=== PATIENT | female | born 1975 | race Caucasian/White ===

== ENCOUNTER 2019-12-20 18:29 | Emergency (ER) | payer OTHER, SELFPAY ==
[2019-12-20 18:38] VITALS: BP 129/82; PULSE 64; RESP 16; TEMP 36.4; O2SAT 99
--- NOTE | 2019-12-20 18:54 | ED.GENADULT ---
HPI - General Adult General Chief complaint: Upper Respiratory Infection Stated complaint: ears clogged headache dizzy Time Seen by Provider: 12/20/19 18:54 Source: patient and RN notes reviewed Mode of arrival: ambulatory Limitations: no limitations History of Present Illness HPI narrative: 44-year-old female complains of bilateral ear decrease hearing, pressure, clogged feeling, and tinnitus, rhinorrhea and congestion, and intermittent headache (none now, not the worst of her like) for 7 days. Peroxide in ears without relief. Symptoms increased over the last 24 hours with intermittent dizziness and nausea (none at this time). Denies itching or drainage. Recently had URI symptoms. No facial swelling. Rhinorrhea and nasal congestion. No high fevers, sore throat, drooling, neck or throat swelling. No chest pain or shortness of breath. Denies vomiting and abdominal pain. Tolerating liquids well. Remains active. Lilian denies being , LMP today. Some parts of this dictation were generated by voice recognition software and may contain typographical and/or grammatical inaccuracies. Related Data Allergies Allergy/AdvReac Type Severity Reaction Status Date / Time No Known Drug Allergies Allergy Unknown Unknown Verified 12/20/19 18:34 DENIES ANY FOOD ALLERGIES Allergy Unknown Unknown Uncoded 12/20/19 18:34 Review of Systems Review of Systems: Narrative: CONSTITUTIONAL: Denies fever, chills, sweats. EYES: Denies visual changes, redness, discharge. ENT: Complains of rhinorrhea, congestion, bilateral ear pressure, tinnitus, decrease hearing, clogged. Denies sore throat, otalgia. CARDIOVASCULAR: Denies chest pain, palpitations, edema. RESPIRATORY: Denies dyspnea, wheezing, cough. GASTROINTESTINAL: Denies abdominal pain, nausea, vomiting, diarrhea. GENITOURINARY: Denies dysuria, hematuria, abnormal discharge. SKIN: Denies rash or itching. MUSCULOSKELETAL: Denies acute back pain, joint pain, or myalgia. NEUROLOGIC: Denies numbness or focal weakness. Complains of intermittent SOW. PSYCHIATRIC: Denies anxiety or depression. All systems reviewed & are unremarkable except as noted in HPI and below. COUNT INCLUDES THE [facility] Past Medical History Medical History (Updated 12/21/19 @ 00:01 by Sulma Moreno) Ovarian cyst Surgical History Surgical History (Updated 12/20/19 @ 19:04 by KATE Gregg) History of removal of ovarian cyst Family History Family History Other Diabetes mellitus High cholesterol Hypertension Social History Social History Smoking status: Never smoker Gender identity (if verbalized by the patient): Female Comments At time of signature, agree with nurse past medical, surgical, social, and family history. There is no relevant family history pertinent to the presenting complaint. Exam Narrative: Exam Narrative: GENERAL: This is a well-nourished, well-developed patient, in no apparent distress. Talks in full sentences and ambulates with steady gait without dyspnea. HEAD: normocephalic, atraumatic. EYES: PERRL. Sclera clear/white. Vision is grossly intact. EARS: External ears normal, auditory canals clear and without drainage, TMs with mild redness and effusion, without perforation, bulging or drainage. NOSE: External nose normal with no obvious nasal discharge, nares with moderate redness and enlarged turbinates, clear rhinorrhea. THROAT: Mucous membranes moist, posterior pharynx clear. Mild erythema. NECK: Neck supple, non-tender without lymphadenopathy, masses or thyromegaly. CARDIOVASCULAR: Regular rate and rhythm without murmurs, gallops, or rubs. RESPIRATORY: Clear to auscultation. Breath sounds equal bilaterally. No wheezes, rales, or rhonchi. GASTROINTESTINAL: Abdomen soft, non-tender, nondistended. Bowel sounds are active. No hepato-splenomegaly, or palpable masses. No guarding. SKI
== END 2019-12-20 19:19 | disposition home or self-care (01) ==
PROVIDERS: Emergency Provider Nurse Practitioner Family
DX: H93.13 Tinnitus, bilateral (principal); J20.9 Acute bronchitis, unspecified; J00 Acute nasopharyngitis [common cold]
CPT/HCPCS: 99213; G0463

== ENCOUNTER 2020-02-20 10:28 | Emergency (ER) | payer SELFPAY ==
[2020-02-20 10:33] VITALS: BP 126/76; PULSE 67; RESP 20; TEMP 36.9; O2SAT 100
--- NOTE | 2020-02-20 11:05 | ED.FEMALEGU ---
HPI - Female Genitourinary General Chief complaint: Urogenital-Female Stated complaint: UTI Source: patient and RN notes reviewed Mode of arrival: ambulatory Limitations: no limitations History of Present Illness HPI Narrative: The patient, a non-smoker/nondrinker, presents with urinary symptoms. Patient states she has a prior history of bacterial vaginosis and cystitis. She has a 1 to 2-week history of urinary frequency, urgency, dysuria. No fever, hematuria, rash, vaginal discharge; no fever, sore throat, cough, travel history, vomiting/diarrhea. She has a prior history of ovarian cyst removal. Related Data Allergies Allergy/AdvReac Type Severity Reaction Status Date / Time No Known Drug Allergies Allergy Unknown Unknown Verified 12/20/19 18:34 Review of Systems Review of Systems: Narrative: General/Constitutional: No weight loss,fever Eyes: N0: Redness,discharge Ears/Nose/Throat: No: Epistaxis,ear discharge Respiratory: Denies: Hemoptysis Gastrointestinal: No Vomiting, Bleeding-rectal Skin: No Lumps, eruption Neurologic: No Focal Weakness,Sz Hematologic: Denies: Petechiae/Purpura Psychiatric: No: Suicida ideationl [facility] Past Medical History Medical History (Updated 02/20/20 @ 11:55 by Paul Bowers MD) Ovarian cyst Surgical History Surgical History (Updated 12/20/19 @ 19:04 by KATE Gregg) History of removal of ovarian cyst Social History Social History Smoking status: Never smoker Gender identity (if verbalized by the patient): Female Comments At time of signature, agree with nursing past medical, surgical, social and family history. There is no relevant family history pertinent to the presenting complaint Exam Narrative: Exam Narrative: General Appearance: Well appearing, Conjunctiva clear Mouth/Throat: Normal appearing, Normal lips Supple Respiratory: Airway patent, No respiratory distress Musculoskeletal: Full ROM Skin: Warm, Dry Neurological: A&O x3, Normal affect The patient agrees, in light of health emergency- in my medical judgement, only a personal chat was preferable to fully undress & examine the patient exhibiting potential COVID symptoms- in order to limit risk of infection. Course Vital Signs Vital signs: Vital Signs Temperature 98.5 F 02/20/20 10:33 Pulse Rate 67 02/20/20 10:33 Respiratory Rate 20 02/20/20 10:33 Blood Pressure 126/76 02/20/20 10:33 Pulse Oximetry 100 02/20/20 10:33 Temperature 98.5 F 02/20/20 10:33 Pulse Rate 67 02/20/20 10:33 Respiratory Rate 20 02/20/20 10:33 Blood Pressure 126/76 02/20/20 10:33 Pulse Oximetry 100 02/20/20 10:33 MDM - Female Genitourinary Lab Data Labs: Urine Glucose Negative Reference Range: Negative Urine Bilirubin Negative Reference Range: Negative Urine Ketone Negative Reference Range: Negative Urine Specific [place] 1.010 Reference Range:1.001-1.035 Urine Blood Negative Reference Range: Negative * * Urine pH 6.0 Reference Range: 5.0-9.0 Urine Protein Negative Reference Range: Negative Urine Urobilinogen 0.2 Reference Range: 0.2-1.0 Urine Nitrate Negative Reference Range: Negative Urine Leukocyte Negative Reference Range: Negative Urine Color Yellow Reference Range: Yellow Urine Characteristics Clear Discharge Plan Discharge Clinical Impression: Dysuria Patient Disposition: Home, Self-Care Condition: Stable Instructions: Antibiotic Form, Urinary Tract Infection in Women (ED) Additional Instructions: Take diflucan next week [
== END 2020-02-20 11:15 | disposition home or self-care (01) ==
PROVIDERS: Emergency Provider Emergency Medicine
DX: R30.0 Dysuria (principal)
CPT/HCPCS: 81003; 87491; 87591; 99214; G0463

== ENCOUNTER 2022-03-31 19:17 | Emergency (ER) | payer OTHER, BC, SELFPAY ==
[2022-03-31 19:39] VITALS: BP 123/80; PULSE 60; RESP 18; TEMP 36.3; O2SAT 100
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
== END 2022-03-31 20:10 | disposition home or self-care (01) ==
PROVIDERS: Emergency Provider Registered Nurse
DX: R51.9 Headache, unspecified (principal); S16.1XXA Strain of muscle, fascia and tendon at neck level, initial encounter; V54.5XXA Driver of pick-up truck or van injured in collision with heavy transport vehicle or bus in traffic accident, initial encounter; M54.6 Pain in thoracic spine; Z87.891 Personal history of nicotine dependence
CPT/HCPCS: 99213; G0463

== ENCOUNTER 2022-05-29 18:03 | Emergency (ER) | payer BC, SELFPAY ==
[2022-05-29 18:05] VITALS: BP 135/95; PULSE 98; RESP 16; TEMP 36.3; O2SAT 99
--- NOTE | 2022-05-29 18:13 | WPDEDEXPGENP ---
HPI - General Ped General Chief complaint: Urogenital-Female Stated complaint: Possible UTI History of Present Illness HPI narrative: 47 y/o female presents to [facility] via POV for an evaluation of urinary sx that began 3-4 days ago. Additionally, she reports dysuria, left low abdominal pain, and low abdominal pressure. No otc meds for sx. Nothing improves sx. Urinating worsens sx. Hx of UTIs. Today's sx are similar UTIs. She is uncomfortable and rates is 4/10. Related Data Allergies Allergy/AdvReac Type Severity Reaction Status Date / Time No Known Allergies Allergy Verified 05/29/22 18:05 Pediatric Review of Systems Review of Systems: Denies history of pyelonephritis and renal calculi. Pertinent negatives: fever, chills, sweats, change in appetite, poor p.o. intake, malaise, recent weight loss, myalgias, lymphadenopathy, headache, dizziness, STD exposure, painful intercourse, constipation, nausea, vomiting, diarrhea, abdominal cramping, hematuria, urinary frequency/urgency, back pain, urinary incontinence, vaginal bleeding/discharge, shortness of breath, chest pain, and heart palpitations/murmurs. [facility] Past Medical History Medical History Ovarian cyst Surgical History Surgical History History of removal of ovarian cyst Family History Family History Other Diabetes mellitus High cholesterol Hypertension Social History Social History Smoking status: Former smoker Additional smoking assessment comments: quit 2009 Alcohol intake: current Alcohol use details: rare Substance use type: does not use Gender identity (if verbalized by the patient): Female Pediatric Exam Narrative: Physical exam: GENERAL: Well-appearing, well-nourished, and in no acute distress. HEAD: Normocephalic, atraumatic. NECK: Supple. No lymphadenopathy or nuchal rigidity. CHEST: Lung sounds are clear to auscultation in bilateral lung martinez. No respiratory distress. HEART: Regular rate and rhythm. No murmur, gallop, or rub heard. ABDOMEN: Soft, non-distended, normal active bowel sounds in all quadrants. No guarding. No rebound tenderness. No pulsatile or palpable abdominal mass(es). No CVAT. Mild suprapubic tenderness and mild left lower quad pain appreciated upon palpation : Bladder non-distended EXTREMITIES: Normal range of motion. No edema. SKIN: Warm, dry, no rash. No skin color changes. Excellent turgor. NEURO: No focal deficits. Alert and oriented x3. SPECIAL OBSERVATIONS: Smiling. Laughing. No evidence of discomfort. Tolerated fluids. Course Course Emergency Course: The patient/guardian displays adequate decision making capability and despite a detailed discussion of alternatives, benefits, risks, and consequences refuses higher level of care to ER via EMS. Level of Care: Express Care Visit Medical Decision Making Differential Diagnosis Differential Diagnosis: Nephrolithiasis, urinary tract infection, pyelonephritis, frequency of micturition, dysuria Vital Signs Vital Signs: Due to an elevated blood pressure, I had a detailed discussion with the patient and/or guardian regarding the need for follow-up with their primary care provider within the next 3-4 days. Patient verbalized understanding and agreed. Lab Data Lab results narrative: Urine dipstick: Color: yellow; Clarity: cloudy; Glucose: negative; Bilirubin: negative; Ketones: 3+, Specific [place]: 1.030; Blood: tract, intact; pH: 5.5 Protein: negative; URO: 0.2 E.U/dL; Nitrites: negative; Leukocytes: negative Critical Care Time Critical Care Time Critical Care Time: No Discharge Plan Discharge Clinical Impression: Hematuria Abdominal pain Qualifiers: Abdominal location: left lower quadrant Qual
== END 2022-05-29 18:30 | disposition left against medical advice (07) ==
PROVIDERS: Emergency Provider Nurse Practitioner Family
DX: R31.9 Hematuria, unspecified (principal); R10.32 Left lower quadrant pain; Z87.891 Personal history of nicotine dependence
CPT/HCPCS: 81003; 87086; 87088; 99213; G0463

== ENCOUNTER 2022-06-29 13:02 | Outpatient (CLI) | payer BC, SELFPAY ==
--- NOTE | 2022-06-29 | ECG_ITS ---
Measurements Intervals [place] Rate: 67 P: 33 OH: 120 QRS: 62 QRSD: 90 T: 53 QT: 361 QTc: 384 Interpretive Statements SINUS RHYTHM WITH SINUS ARRHYTHMIA NORMAL ECG NO PREVIOUS ECG AVAILABLE FOR COMPARISON Electronically Signed On 06-29-2022 14:16:31 CDT by Paul Clinton M.D.
== END 2022-06-29 13:03 | disposition home or self-care (01) ==
PROVIDERS: Visit Provider Nurse Practitioner
DX: E66.9 Obesity, unspecified (principal)
CPT/HCPCS: 93005

== ENCOUNTER 2023-02-28 16:43 | Emergency (ER) | payer BC, SELFPAY ==
[2023-02-28 16:55] VITALS: BP 113/77; PULSE 71; RESP 16; TEMP 36.2; O2SAT 100
--- NOTE | 2023-02-28 17:19 | ED.EYEPROB ---
HPI - Eye Problem General Chief complaint: Eye Problems Stated complaint: lt eye irritation Source: patient Mode of arrival: ambulatory Limitations: no limitations History of Present Illness HPI Narrative: 48 year old female presents to [facility] with complaints of redness, swelling and pain to left eyelid for the past 2 days. Patient reports that she started using coconut oil and castor oil on her eyelashes for the past 2 weeks inserted with irritation few days ago. Patient denies eye drainage, eye redness or visual changes. Patient does wear contacts MD chief complaint: other (left eye lid pain, redness and swelling) Onset (ago): day(s) (2) Location: left eye Associated symptoms: none Treatments Prior to Arrival: none Related Data Home Medications Medication Instructions Recorded Confirmed tirzepatide 2.5 mg/0.5 mL 2.5 mg subcut DIRECTED 02/28/23 02/28/23 subcutaneous pen injector (Florian) Allergies Allergy/AdvReac Type Severity Reaction Status Date / Time No Known Allergies Allergy Verified 05/29/22 18:05 Review of Systems Constitutional: Constitutional: Denies chills, Denies fatigue, Denies fever(s) and Denies weakness Eyes: Comments: Redness, pain and swelling to left eyelid ENT: Denies vertigo, Denies dizziness, Denies epistaxis and Denies nasal congestion Respiratory: Respiratory: Denies cough, Denies dyspnea and Denies wheezing Gastrointestinal: Gastrointestinal: Denies diarrhea, Denies nausea and Denies vomiting Integumentary/Breasts: Skin/Breast: Denies pruritus, Reports erythema, Denies rash and Denies skin ulcer Neurologic: Denies vertigo, Denies dizziness, Denies syncope and Denies headache(s) [facility] Past Medical History Medical History Ovarian cyst Surgical History Surgical History History of removal of ovarian cyst Family History Family History Other Diabetes mellitus High cholesterol Hypertension Social History Social History Smoking status: Former smoker Additional smoking assessment comments: quit 2009 Alcohol intake: current Alcohol use details: rare Substance use type: does not use Living arrangements: with family Gender identity (if verbalized by the patient): Female Comments At time of signature, I agree with nursing past medical, surgical, social and family history. There is no relevant family history pertinent to the presenting complaint. Exam Const: General: healthy appearing and no acute distress Nutritional Appearance: well nourished Orientation/consciousness: patient oriented x3 Limitations: no limitations Eyes: Pupils: Equal, round and reactive pupils present EOM: EOMs intact bilaterally Direct Ophthalmoscopy: no photophobia Other: Erythema, swelling and pain noted to left upper eyelid; there is no erythema to the conjunctiva/sclera. No obvious stye noted Neck: Neck: normal visual inspection Resp: Effort & Inspection: normal respiratory effort and not labored Auscultation: clear to auscultation bilaterally, no crackles, no rales, no rhonchi and no wheezes Cardio: Rate: regular rate Rhythm: regular rhythm Skin: General skin exam: normal color Wounds: no wounds Neuro: General: patient oriented x3 Speech: normal speech Gait exam (Neuro): Normal gait present Psych: Affect: normal affect Attitude: cooperative Course Course Level of Care: Express Care Visit Vital Signs Vital signs: Vital Signs Temperature 36.2 C L 02/28/23 16:55 Pulse Rate 71 02/28/23 16:55 Respiratory Rate 16 02/28/23 16:55 Blood Pressure 113/77 02/28/23 16:55 Pulse Oximetry 100 02/28/23 16:55 Oxygen Delivery Room Air 02/28/23 16:55 Temperature 36.2 C L 02/28/23 16:55 Pulse Rate 71 02/28/23 16:5
== END 2023-02-28 17:37 | disposition home or self-care (01) ==
PROVIDERS: Emergency Provider Nurse Practitioner Family; PCP Nurse Practitioner Family
DX: L24.1 Irritant contact dermatitis due to oils and greases (principal); Z87.891 Personal history of nicotine dependence
CPT/HCPCS: 99213; G0463

== ENCOUNTER 2024-06-19 19:13 | Emergency (ER) | payer OTHER, SELFPAY ==
--- NOTE | 2024-06-19 19:29 | ED.EYEPROB ---
HPI - Eye Problem General Chief complaint: Eye Problems Stated complaint: LT EYE Swellen Time Seen by Provider: 06/19/24 19:34 Source: patient Mode of arrival: ambulatory Limitations: no limitations History of Present Illness HPI Narrative: 49 y/o female presented for complaint of left lower eyelid swelling and pain today. Endorses the lid is tender when touched, and reports mild itching to the lower lid. She is currently taking ofloxacin for diagnosis conjunctivitis 2 days ago. Denies eye drainage, vision changes, photophobia, foreign body sensation or injury. MD chief complaint: eye pain Related Data Home Medications Medication Instructions Recorded Confirmed tirzepatide 2.5 mg/0.5 mL 2.5 mg subcut DIRECTED 02/28/23 06/19/24 subcutaneous pen injector (Rickunchristianro) ofloxacin 0.3 % eye drops 1 drp DIRECTED 06/19/24 06/19/24 Allergies Allergy/AdvReac Type Severity Reaction Status Date / Time No Known Allergies Allergy Verified 05/29/22 18:05 Review of Systems Review of Systems: CONSTITUTIONAL: Denies body aches, fever, chills EYES: Endorses swelling, redness and pain to left lower eye; Denies visual changes, FB sensation, photophobia ENT: Denies rhinorrhea, congestion, sore throat, or otalgia. CARDIOVASCULAR: Denies chest pain, palpitations RESPIRATORY: Denies cough or dyspnea. SKIN: Denies rash, itching, or wounds. MUSCULOSKELETAL: Denies back pain, joint pain, or myalgia. NEUROLOGIC: Denies headache, numbness, tingling, or weakness. All systems reviewed & are unremarkable except as noted in HPI and below PMFSH Past Medical History Medical History Ovarian cyst Surgical History Surgical History History of removal of ovarian cyst Family History Family History Other Diabetes mellitus High cholesterol Hypertension Social History Social History Smoking status: Former smoker Additional smoking assessment comments: quit 2009 Alcohol intake: current Alcohol use details: rare Substance use type: does not use Living arrangements: with family Gender identity (if verbalized by the patient): Female Comments At time of signature, I have reviewed and agree with nursing past medical, surgical, social and family history unless otherwise noted. Please see nursing chart for further information. There is no relevant family history pertinent to the presenting complaint Exam Narrative: GENERAL: Well-appearing EYES: mild left conjunctival injection, Lower eye lid tenderness with palpation, swelling and redness c/w stye, PERRLA, EOMI. Lid eversion shows no foreign body. No active drainage. No erythema or swelling to upper lid. ENT: Mucous membranes pink and moist. No rhinorrhea. CHEST: Clear to auscultation. HEART: Regular rate and rhythm. SKIN: Warm, dry, no rash. Normal skin turgor. NEURO: No focal deficits. Alert and oriented x3 PSYCH: Normal affect. Course Course Emergency Course: Patient is aware of diagnosis, understands and agrees to treatment plan. Anticipatory guidance given. Patient agrees to follow-up as directed and is aware of reasons to seek care at the emergency department. Portions of this record may have been created with voice recognition software Level of Care: Express Care Visit MDM - Eye Problem MDM Narrative Medical decision making narrative: Discussed physical exam findings. Will continue drops as previously prescribed for dx conjunctivitis, will send cephalexin at this time Advised supportive measures and signs/symptoms to go to the ER. Pt is appropriate for outpt treatment and f/u. Differential Diagnosis Differential diagnosis: Likely corneal abrasion, conjunctivitis, acute iritis, periorbital cellulitis, corneal
[2024-06-19 19:33] VITALS: BP 116/71; PULSE 65; RESP 16; TEMP 36.3; O2SAT 100
[2024-06-19 19:35] VITALS: BP 116/71; PULSE 65; RESP 16; TEMP 36.3; O2SAT 100
== END 2024-06-19 19:45 | disposition home or self-care (01) ==
PROVIDERS: Emergency Provider Nurse Practitioner Family
DX: H00.025 Hordeolum internum left lower eyelid (principal); Z87.891 Personal history of nicotine dependence
CPT/HCPCS: 99213; G0463

== ENCOUNTER 2024-12-28 15:58 | Emergency (ER) | payer OTHER, SELFPAY ==
--- OUTSIDE RECORDS SUMMARY | 2024-12-28 16:00 | XMS_ITS | Clinical Summary ---
Author Organization [facility] Virtual Care Address [address] [place] [phone] Phone Care Team Providers Care Rounder And Backer Name Role Phone Bekah Curry GM VIDEO Primary Care Provider + Allergies No known active allergies Medications Mounjaro 5 mg/0.5 mL pen injector 03/31/2023 Act denise Active Problems Problem Noted Date Diagnosed Date Eye discharge 06/17/2024 Assessment & Plan (06/17/2024 6:43 PM CDT): Possible contact lens overuse? Stop using contacts, removed already Optho referral placed Ofloxacin drops Zyrtec Cool compress ER for worsening symptoms, vision disturbances, pain Surgical History Surgery Date Site/Laterality Comments OVARIAN CYST REMOVAL 11/14/1999 - 11/13/2000 Ruptured cyst Medical History Medical History Date Comments Uses contact lenses Family History Medical History Relation Name Comments Glaucoma Father Macular degeneration Neg Hx Thyroid disease Neg Hx Relation Name Status Comments Father Social History Tobacco Use Types Packs/Day Years Used Date Smoking Tobacco: Never Smokeless Tobacco: Never Personal Safety Answer Date Recorded Getting School Help Needed Not on file 12/11 Comments Unknown Sex and Gender Information Value Date Recorded Sex Assigned at Not on file 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 Gender Identity Not on file Sexual Orientation Not on file Obstetrics History Last Filed Vital Signs Vital Sign Reading Time Taken Comments Blood Pressure 118/82 06/03/2024 11:23 AM CDT Pulse 76 06/17/2024 2:59 PM CDT Temperature 36.4 C (97.6 F) 06/17/2024 2:59 PM CDT Respiratory Rate - - Oxygen Saturation 98% 06/17/2024 2:59 PM CDT Inhaled Oxygen Concentration - - Weight 64 kg (141 lb) 06/17/2024 2:59 PM CDT Height 162.6 cm (5' 4 ) 06/17/2024 2:59 PM CDT Body Mass Index 24.2 06/17/2024 2:59 PM CDT Plan of Treatment Health Maintenance Due Date Last Done Comments Breast Cancer Screening-Mammogram 1974 Cervical Cancer Screening 1974 Colon Cancer Screening-Colonoscopy 1974 Depression Screening 1974 Hepatitis C Screening 1974 Regular Well Visit/Exam 18-64 02/03/1992 DTaP/Tdap/Td Vaccine (3 - Td or Tdap) 01/09/2024 01/09/2014, 07/13/1988, 1974 Zoster Vaccine (1 of 2) 02/03/2024 Covid-19 Vaccine (3 - 2023-2 5 season) 2024 07/27/2021, 06/23/2021 Influenza Vaccine (#1) 2024 , 10/26/2019, 01/09/2014 Pneumococcal vaccine <65 Aged Out No longer eligible based on patient's age to complete this topic Insurance [facility] [place]PO [place] [employer] Address: [facility] [id number] [phone] Care Teams Rounder And Backer Relationship Specialty Start Date End Date Bekah Curry NP [address] [place] [address] PCP - General Nurse Practitioner 04/05/23
--- OUTSIDE RECORDS SUMMARY | 2024-12-28 16:00 | XMS_ITS | Referral Summary ---
Author Organization [facility] Virtual Care Address [address] [place] [phone] Phone Care Team Providers Care Operations Superintendent Name Role Phone Bekah Curry [facility] PERSONNEL DIRECTOR Primary Care Provider + Allergies No known active allergies Medications Mounjaro 5 mg/0.5 mL pen injector 03/31/2023 Act denise Active Problems Problem Noted Date Diagnosed Date Eye discharge 06/17/2024 Assessment & Plan (06/17/2024 6:43 PM CDT): Possible contact lens overuse? 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
--- OUTSIDE RECORDS SUMMARY | 2024-12-28 16:01 | XMS_ITS | Encounter Summary ---
Author Organization [facility] Healthcare Address [address] [place] [address] Care Team Providers Care Patient Day Coordinator Name Role Phone Bekah Curry HAZARDOUS WASTE TECHNICIAN Primary Care Provider + Encounter Details Date Type Department Care Team (Late st Contact Info) Description 07/31/2021 Telephone [facility] [address] (Third Floor) [place] [address] Lucia Jade RN Social History Tobacco Use Types Packs/Day Years Used Date Smoking Tobacco: Never Assessed Comments Unknown Sex and Gender Information Value Date Recorded Sex Assigned at Not on file 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 11/29/2021 12/03/2021 03/29/2022 3:05 AM C DT COVID19 12/03/2021 12/03/2021 12/13/2021 3:05 AM ELECTRICAL SYSTEM SPECIALIST documented as of this encounter Care Teams Patient Day Coordinator Relationship Specialty Start Date End Date Bekah Curry, ADRIANA [address] [facility] DE[facility] FAM[facility] MED[facility]INE [place], [place] [id number] PCP - General Nurse Practitioner 04/05/23 documented as of this encounter
--- OUTSIDE RECORDS SUMMARY | 2024-12-28 16:01 | XMS_ITS | Data Portability ---
Author Organization [facility] Address [address] [place] [address] Assessment Encounter Date Assessment Date Assessment LastModified by Organization Details LastModified Time 01/26/2024 01/26/2024 Annual gynecological exam performed. Patient will come back in a year unless there are new symptoms. [email or web address] Not available 01/26/2024 09:53:52 Plan of Treatment Reminders Order Date Submit Date Provider Last Modified By Organization Details Last Modified Time Details Appointments VAGINAL INFECTION 2024 09:15A M ANASTACIO MONTGOMERY NP Not available Not available Not available Lab CMP, serum or plasma 2023 024 [facility] (Lab), [address], [place], [address], 02/04/2024 03:32:47 HbA1c (hemoglob in A1c), blood 2023 024 [facility] (Lab), [address] [place], [address], 02/04/2024 03:32:48 CBC w/ auto diff 2023 024 [facility] (Lab), [address] [place], [address], 02/04/2024 03:32:46 lipid panel, blood 2023 024 [facility] (Lab), [address] [place], [address], 02/04/2024 03:32:47 TSH, serum or plasma 2023 024 [facility] (Lab), [address], [place], [address], 02/04/2024 03:32:48 vitamin D, 25-hydrox y, total, serum 2023 024 [facility] (Lab), [address], [place], [address], 02/04/2024 03:32:48 Referral None recorded. Procedures None recorded. Surgeries None recorded. Imaging None recorded. Medication Orders Mounjaro 5 mg/0.5 mL subcutane ous pen injector 2023 024 [facility] [address], [address], [place], [address], 01/26/2024 10:22:06 Mounjaro 5 mg/0.5 mL subcutane ous pen injector [address], [address], [place], [address], 01/26/2024 09:56:42 Mounjaro 5 mg/0.5 mL subcutane ous pen injector 2022 023 [place] [address] [facility] #[id number], [address] [place], [place], [id number], 01/26/2024 09:56:42 Mounjaro 7.5 mg/0.5 mL subcutane ous pen injector 2022 023 [id number], [address] [place], [place], [id number], 02/14/2024 13:44:17 Patient TargetsNo targets recorded. Patient InstructionsNo instructions recorded. Reason for Referral None Reported. Results Created Date Observation Date Name Description Value Unit Range Abnormal Flag Note LastModifiedBy Organization Detail LastModifiedTime 02/11/20 23 02/10/2023 CT/GC AND TRICH OMONA S VAGIN ARSH (RRNA ), SWAB chlamydia trachomatis, PCR Negati ve negati ve Not Available [facility] (Lab) [address], [place], [address], 02/11/2023 19:16:54 02/11/20 23 02/10/2023 CT/GC AND TRICH OMONA S VAGIN ARSH (RRNA ), SWAB neisseria gonorrhoeae, PCR Negati ve negati ve Not Available [facility] (Lab) [address], [place], [address], 02/11/2023 19:16:54 02/11/20 23 02/10/2023 CT/GC AND TRICH OMONA S VAGIN ARSH (RRNA ), SWAB trichomonas vaginalis ribosomal RNA (rrna) Negati ve negati ve Not Available [facility] (Lab) [address], [place], [address], 02/11/2023 19:16:54 02/11/20 23 02/10/2023 VAGIN ITIS/ VAGIN OSIS, DNA PROBE ryan sp. detection, direct probe Negati ve negati ve Not Available [facility] (Lab) [address], [place], [address], 02/11/2023 19:16:54 02/11/20 23 02/10/2023 VAGIN ITIS/ VAGIN OSIS, DNA PROBE gardnerella vag. detection, direct probe Positi ve negati ve abnormal Not Available [facility] (Lab) [address], [place], [address], 02/11/2023 19:16:54 02/11/20 23 02/10/2023 VAGIN ITIS/ VAGIN OSIS, DNA PROBE trichomonas vag. detection, direct probe Negati ve negati ve Not Available [facility] (Lab) [address], [place], [address], 02/11/2023 19:16:54 01/26/20 24 01/26/2024 IMAGE GUIDE D PAP AND HPV REGAR DLESS image guided Pap, HPV regardless of Pap result SEE RESULT S BELOW CASE REPOR T: Cytol ogy Gynec ologi gia Repor t Case: [id number] Autho ange javier Provi ramila: Daphne Witt, ADRIANA Ramos cted: 01/25 0938 Order ing Locat ion: [place] [facility] Recei jay jay: 01/26 0554 First Scree n: Maria Ines Gavin Speci men: Clyde patel Pap - Image d, Cervi x STATE MENT OF ADEQU ACY: Satis facto ry for evalu ation Trans forma tion zone compo nent prese nt FINAL DIAGN OSIS: Negat denise for Intra epith elial Nayely sanderson or Lori pina (NIL) . Elect carlee ochoa philippe d by Maria Ines Gavin on 2023 at 2:57 PM ----- ----- ----- ----- ----- ----- ----- ----- ----- ----- ----- ----- ----- ----- ----- ----- ----- ---- HPV RESUL TS: HPV mRNA E6/E7 : No HPV mRNA Detec vincenzo NOTE: This high risk HPV mRNA assay detec ts fourt een high- risk HPV types (16, 18, 31, 33, 35, 39, 45, 51, 52, 56, 58, 59, 66, 68) witho ut diffe renti ation . COMME NT: This speci men was revie wed by a Cytot echno logis t and/o r Patho logis t (as indic ated in this repor t) after evalu ation using the Thinp rep Imagi ng Syste m. CLINI GIA INFOR MATIO N: Menst rual Statu s: LMP (if appli cable ): Clini gia Histo ry/Pr eviou s Pap: Type of Neopl una (if appli cable ): Signi fican t Clini gia Findi ngs: Other Histo ry: Hormo farhana (if appli cable ): PAP EDUCA FARTUN L NOTE: The Pap Test is a scree amanda test with an inher ent false negat denise rate. Liqui d-bas ed sampl ing may decre ase, but will not elimi tushar, false negat denise resul ts. A negat denise resul t does not precl ude the prese nce and/o r devel opmen t of disea se, since the prese nce of abnor mal cells in the sampl e depen ds on the locat ion of the lesio n and sampl ing techn ique. Isiah nued regul ar scree amanda is the best metho d of cance r preve ntion . If repor vincenzo cytol ogic findi ng do not corre late with physi gia and/o r histo rical findi ngs, furth er inves tigat ion is recom faye d, as clini ronnie warra nted. Not Available [facility] (Lab) [address], [place], [address], 01/31/2024 16:00:46 02/03/20 24 02/03/2024 CBC W/DIF F WBC 4.7 10'3/ uL 3.5-10 .5 Not Available [facility] (Lab) [address], [place], [address], 02/04/2024 03:32:46 02/03/20 24 02/03/2024 CBC W/DIF F RBC 4.03 10'6/ uL (based on docume nted legal sex) 3.80-5 .20 Not Available [facility] (Lab) [address], [place], [address], 02/04/2024 03:32:46 02/03/20 24 02/03/2024 CBC W/DIF F HGB 12.8 g/dL (based on docume nted legal sex) 11.6-1 5.4 Not Available [facility] (Lab) [address], [place], [address], 02/04/2024 03:32:46 02/03/20 24 02/03/2024 CBC W/DIF F HCT 38.3 % (based on docume nted legal sex) 34.0-4 5.0 Not Available [facility] (Lab) [address], [place], [address], 02/04/2024 03:32:46 02/03/20 24 02/03/2024 CBC W/DIF F MCV 95.0 fL 80.0-9 9.0 Not Available [facility] (Lab) [address], [place], [address], 02/04/2024 03:32:46 02/03/20 24 02/03/2024 CBC W/DIF F MCH 31.8 pg 27.0-3 4.0 Not Available [facility] (Lab) [address], [place], [address], 02/04/2024 03:32:46 02/03/20 24 02/03/2024 CBC W/DIF F MCHC 33.4 g/dL 32.0-3 5.5 Not Available [facility] (Lab) [address], [place], [address], 02/04/2024 03:32:46 02/03/20 24 02/03/2024 CBC W/DIF F RDW 12.7 % 11.0-1 5.0 Not Available [facility] (Lab) [address], [place], [address], 02/04/2024 03:32:46 02/03/20 24 02/03/2024 CBC W/DIF F plt 410 10'3/ uL 150-40 0 high Not Available [facility] (Lab) [address], [place], [address], 02/04/2024 03:32:46 02/03/20 24 02/03/2024 CBC W/DIF F MPV 10.1 fL 8.8-12 .1 Not Available [facility] (Lab) [address], [place], [address], 02/04/2024 03:32:46 02/03/20 24 02/03/2024 CBC W/DIF F NRBC's 0.0 % 0.0 Not Available [facility] (Lab) [address], [place], [address], 02/04/2024 03:32:46 02/03/20 24 02/03/2024 CBC W/DIF F absolute NRBCs 0.0 10'3/ uL 0.0 Not Available [facility] (Lab) [address], [place], [address], 02/04/2024 03:32:46 02/03/20 24 02/03/2024 CBC W/DIF F neutrophils 64.9 % 34.0-7 3.0 Not Available [facility] (Lab) [address], [place], [address], 02/04/2024 03:32:46 02/03/20 24 02/03/2024 CBC W/DIF F lymphocytes 27.5 % 15.0-5 0.0 Not Available [facility] (Lab) [address], [place], [address], 02/04/2024 03:32:46 02/03/20 24 02/03/2024 CBC W/DIF F monocytes 5.9 % 1.0-15 .0 Not Available [facility] (Lab) [address], [place], [address], 02/04/2024 03:32:46 02/03/20 24 02/03/2024 CBC W/DIF F eosinophils 1.1 % 0.0-8. 0 Not Available [facility] (Lab) [address], [place], [address], 02/04/2024 03:32:46 02/03/20 24 02/03/2024 CBC W/DIF F basophils 0.4 % 0.0-2. 0 Not Available [facility] (Lab) [address], [place], [address], 02/04/2024 03:32:46 02/03/20 24 02/03/2024 CBC W/DIF F immature granulocytes 0.2 % no define d refere nce range Not Available [facility] (Lab) [address], [place], [address], 02/04/2024 03:32:46 02/03/20 24 02/03/2024 CBC W/DIF F absolute neutrophils 3.1 10'3/ uL 1.5-8. 0 Not Available [facility] (Lab) [address], [place], [address], 02/04/2024 03:32:46 02/03/20 24 02/03/2024 CBC W/DIF F absolute lymphocytes 1.3 10'3/ uL 1.0-4. 0 Not Available [facility] (Lab) [address], [place], [address], 02/04/2024 03:32:46 02/03/20 24 02/03/2024 CBC W/DIF F absolute monocytes 0.3 10'3/ uL 0.2-1. 0 Not Available [facility] (Lab) [address] [place], [address], 02/04/2024 03:32:46 02/03/20 24 02/03/2024 CBC W/DIF F absolute eosinophils 0.1 10'3/ uL 0.0-0. 6 Not Available [facility] (Lab) [address] [place], [address], 02/04/2024 03:32:46 02/03/20 24 02/03/2024 CBC W/DIF F absolute basophils 0.0 10'3/ uL 0.0-0. 3 Not Available [facility] (Lab) [address] [place], [address], 02/04/2024 03:32:46 02/03/20 24 02/03/2024 CBC W/DIF F absolute immature granulocytes 0.0 10'3/ uL 0.00-0 .10 2023 1:42 AM: P indic ates parti al resul ts on a panel have been relea sed. Addit ional resul ts will follo w. 2023 1:43 AM: This resul t has been final verif ied. No addit ional or francisco ed resul ts are expec vincenzo. Not Available [facility] (Lab) [address], [place], [address], 02/04/2024 03:32:46 02/03/20 24 02/03/2024 LIPID PANEL ,AMA (LDL- CALC) total cholesterol 220 mg/dL 0-199 high Not Available [facility] (Lab) [address], [place], [address], 02/04/2024 03:32:47 02/03/20 24 02/03/2024 LIPID PANEL ,AMA (LDL- CALC) triglyceride s 145 mg/dL 0.00-1 50.00 NCEP Refer ence Value s for Trigl yceri jeffrey: Angela l: <150 mg/dL Borde rline High: 150 - 199 mg/dL High: 200 - 499 mg/dL Very High: >/= 500 mg/dL Not Available [facility] (Lab) [address], [place], [address], 02/04/2024 03:32:47 02/03/20 24 02/03/2024 LIPID PANEL ,AMA (LDL- CALC) HDL cholesterol 67 mg/dL >40 Not Available [facility] (Lab) [address], [place], [address], 02/04/2024 03:32:47 02/03/20 24 02/03/2024 LIPID PANEL ,AMA (LDL- CALC) LDL cholesterol 127 mg/dL 0-99 high Cutof f value s recom faye d by the Natio nal Reena stero l Educa tion Progr am: JORGE ABLE: Reena stero l <200 mg/dL LDL <100 mg/dL BORDE RLINE : Erena stero l 200-2 39 mg/dL LDL 101-1 59 mg/dL HIGHE R RISK: Reena stero l >240 mg/dL LDL >160 mg/dL , HDL <40 mg/dL Not Available [facility] (Lab) [address], [place], [address], 02/04/2024 03:32:47 02/03/20 24 02/03/2024 LIPID PANEL ,AMA (LDL- CALC) non-HDL cholesterol 153 mg/dL no refere nce range A reaso nable goal for non-H DL reena stero l is one that is 30 mg/dL highe r than the LDL reena stero l goal. Not Available [facility] (Lab) [address], [place], [address], 02/04/2024 03:32:47 02/03/20 24 02/03/2024 LIPID PANEL ,AMA (LDL- CALC) chol/HDL ratio 3.3 . 0.0-5. 0 On March 08, 2023, [facility] [[email or web address]] labor atori chanda francisco ed the equat ion for calcu latin g estim ated low-d ensit y lipop rotei n-cho leste rol (LDL- C) from the Maame marv equat ion to the Abby sanderson/Jemima rebolledo equat ion. This new equat ion is only valid for lipid panel s with trigl yceri jeffrey < 400 mg/dL . Studi es haley demon strat ed that this new equat ion will impro ve the accur acy of LDL-C , espec ially in scena altamirano when LDL-C jae ntrat ions are relat ively low (< 100 mg/dL ), trigl yceri jeffrey are eleva vincenzo, or patie nt is non-f astin g. Refer ences : - Gilles Johnson, Lewis Brown , Lazaro yarbrough, Naresh Abraham, Naresh villarreal, Reynaldo Mccain [facility] , and Bridger Lara . 2013. Comp ariso n of a Novel Metho d vs the Fried marv Equat ion for Estim ating Low-D ensit y Lipop rotei n Reena stero l Level s from the Stand catherine Lipid Profgraham mandel. IRINA: The Journ al of the Ameri can Medic al Assoc iatio n 310 (19): 2060- . - Patrick wharton V, Barbara J, Deandre wharton A, Chiara M, Tomasa buckner R, Robinson wharton E, Adán morris RS, Marco SR, Abby sanderson SS. Fast ing Versu s Nonfa sting and Low-D ensit y Lipop rotei n Reena stero l Accur acy. Circu latio n. 2017Nov 15;137 (1):1 0-19. Not Available [facility] (Lab) [address], [place], [address], 02/04/2024 03:32:47 02/03/20 24 02/03/2024 CMP(C OMPRE HENSI VE METAB OLIC PANEL ) sodium 138 mmol/ L 133-14 6 Not Available [facility] (Lab) [address] [place], [address], 02/04/2024 03:32:47 02/03/20 24 02/03/2024 CMP(C OMPRE HENSI VE METAB OLIC PANEL ) potassium 4.3 mmol/ L 3.5-5. 1 Not Available [facility] (Lab) [address] [place], [address], 02/04/2024 03:32:47 02/03/20 24 02/03/2024 CMP(C OMPRE HENSI VE METAB OLIC PANEL ) chloride 102 mmol/ L 98-107 Not Available [facility] (Lab) [address] [place], [address], 02/04/2024 03:32:47 02/03/20 24 02/03/2024 CMP(C OMPRE HENSI VE METAB OLIC PANEL ) carbon dioxide 29 mmol/ L 21-31 Not Available [facility] (Lab) [address], [place], [address], 02/04/2024 03:32:47 02/03/20 24 02/03/2024 CMP(C OMPRE HENSI VE METAB OLIC PANEL ) anion gap 7 mmol/ L 4-13 Not Available [facility] (Lab) [address], [place], [address], 02/04/2024 03:32:47 02/03/20 24 02/03/2024 CMP(C OMPRE HENSI VE METAB OLIC PANEL ) blood urea nitrogen 12 mg/dL 7-25 Not Available [facility] (Lab) [address], [place], [address], 02/04/2024 03:32:47 02/03/20 24 02/03/2024 CMP(C OMPRE HENSI VE METAB OLIC PANEL ) creatinine 0.83 mg/dL 0.60-1 .30 Not Available [facility] (Lab) [address], [place], [address], 02/04/2024 03:32:47 02/03/20 24 02/03/2024 CMP(C OMPRE HENSI VE METAB OLIC PANEL ) egfrcr (CKD-epi 2020) 86 mL/mi n/1.7 3_m2 >=60 Not Available [facility] (Lab) [address], [place], [address], 02/04/2024 03:32:47 02/03/20 24 02/03/2024 CMP(C OMPRE HENSI VE METAB OLIC PANEL ) calcium 9.3 mg/dL 8.3-10 .5 Not Available [facility] (Lab) [address], [place], [address], 02/04/2024 03:32:47 02/03/20 24 02/03/2024 CMP(C OMPRE HENSI VE METAB OLIC PANEL ) glucose 81 mg/dL 70-100 Not Available [facility] (Lab) [address], [place], [address], 02/04/2024 03:32:47 02/03/20 24 02/03/2024 CMP(C OMPRE HENSI VE METAB OLIC PANEL ) protein, total 7.0 g/dL 6.4-8. 3 Not Available [facility] (Lab) [address], [place], [address], 02/04/2024 03:32:47 02/03/20 24 02/03/2024 CMP(C OMPRE HENSI VE METAB OLIC PANEL ) albumin 4.7 g/dL 3.5-5. 0 Not Available [facility] (Lab) [address], [place], [address], 02/04/2024 03:32:47 02/03/20 24 02/03/2024 CMP(C OMPRE HENSI VE METAB OLIC PANEL ) ALT 20 units /L 9-43 Not Available [facility] (Lab) [address], [place], [address], 02/04/2024 03:32:47 02/03/20 24 02/03/2024 CMP(C OMPRE HENSI VE METAB OLIC PANEL ) alkaline phosphatase 86 units /L 34-104 Not Available [facility] (Lab) [address], [place], [address], 02/04/2024 03:32:47 02/03/20 24 02/03/2024 CMP(C OMPRE HENSI VE METAB OLIC PANEL ) AST 14 units /L 13-39 Not Available [facility] (Lab) [address], [place], [address], 02/04/2024 03:32:47 02/03/20 24 02/03/2024 CMP(C OMPRE HENSI VE METAB OLIC PANEL ) bilirubin, total 0.4 mg/dL 0.2-1. 2 Not Available [facility] (Lab) [address], [place], [address], 02/04/2024 03:32:47 02/03/20 24 02/03/2024 TSH, REFLE X FREE T4 TSH 1.09 uIU/m L 0.30-5 .33 Not Available [facility] (Lab) [address], [place], [address], 02/04/2024 03:32:48 02/03/20 24 02/03/2024 HEMOG LOBIN A1C hemoglobin A1C 5.5 % 0-5.6 The Ameri can Diabe cierra Assoc iatio n recom mends that a prima ry goal of thera py shoul d be a HBA1C of < 7% and that physi cians shoul d reeva luate the treat ment regim en in patie nts with HBA1C value s consi stent ly > 8%. <5.7% Angela l 5.7 - 6.4% Incre ased risk for diabe cierra >=6.5 % Diagn ostic of diabe cierra <7.0% Goal of thera py >8.0% Actio n sugge sted Not Available [facility] (Lab) [address], [place], [address], 02/04/2024 03:32:48 02/03/20 24 02/03/2024 VITAM IN D, 25-OH (TOTA L D2/D3 ) vitamin D, 25-hydroxy, total 16.9 NG/mL 30.0-1 00.0 low Sugge stive of Defic iency : <20 ng/mL Sugge stive of Insuf ficie ncy: 20-29 ng/mL Sugge stive of Suffi cienc y: 30-10 0 ng/mL Sugge stive of Toxic ity: >150 ng/mL Not Available [facility] (Lab) [address], [place], [address], 02/04/2024 03:32:48 Result Notes None recorded. Procedures Surgical History Date Name Laterality Status Provider Name and Address Organization Details Recorded Time 06/07/20 Date of Last Pap Smear completed Rena Soto [facility] 01/26/2024 09:34:45 Laparoscopy completed Tiny West [facility] 06/07/2022 17:02:24 Imaging Results None recorded. Procedure Notes None recorded. Medical Equipment None Reported. Allergies No known drug allergies Medications Name Sig Start Date Stop Date Status Note LastModified by Organization Details LastModified Time binaxnow cov kit home cierra 06/07 completed Not Available Not Available Not Available cyclobenzap rine 10 mg tablet TAKE 1 TABLET BY MOUTH AT BEDTIME NEEDED FOR MUSCLE SPASM. DO NOT DRIVE WHILE TAKING 06/07 completed Not Available Not Available Not Available fluconazole 150 mg tablet TAKE 1 TABLET BY MOUTH NOW. REPEAT IN 7 DAYS active Not Available Not Available No t Available prednisone 20 mg tablet TAKE 2 TABLETS BY MOUTH DAILY FOR 5 DAYS active Not Available Not Available No t Available phentermine 15 mg capsule TAKE 1 CAPSULE BY MOUTH EVERY DAY 09/03 completed Not Available Not Available Not Available topiramate 25 mg tablet TAKE 1 TABLET BY MOUTH EVERY DAY 08/06 completed Not Available Not Available Not Available metronidazo le 500 mg tablet TAKE 1 TABLET BY MOUTH EVERY 12 HOURS FOR 7 DAYS 01/25 completed Not Available Not Available Not Available sulfamethox azole 800 mg-trimetho prim 160 mg tablet active Not Available Not Available Not Available nystatin-tr iamcinolone 100,000 unit/gram-0 .1 % topical ointment APPLY TOPICALLY TO THE AFFECTED AREA TWICE DAILY FOR 5 TO 7 DAYS active Not Available Not Available No t Available cephalexin 500 mg capsule TAKE 1 CAPSULE BY MOUTH EVERY 8 HOURS FOR 10 DAYS active Not Available Not Available No t Available ergocalcife rol (vitamin D2) 1,250 mcg (50,000 unit) capsule Take one capsule by mouth once weekly for 8 weeks 04/14 completed Not Available Not Available Not Available norethindro ne (contracept denise) 0.35 mg tablet 01/14 completed Not Available Not Available Not Available topiramate 50 mg tablet TAKE 1 TABLET BY MOUTH TWICE DAILY 09/03 completed Not Available Not Available Not Available nitrofurant oin monohydrate /macrocryst als 100 mg capsule TAKE 1 CAPSULE BY MOUTH EVERY 12 HOURS FOR 7 DAYS active Not Available Not Available No t Available cholecalcif nela (vitamin D3) 1,250 mcg (50,000 unit) capsule TAKE 1 CAPSULE BY MOUTH ONCE A WEEK active Not Available Not Available No t Available BinaxNOW COVID-19 Ag Self Test kit TEST DIRECTED TODAY 06/07 completed Not Available Not Available Not Available Mounjaro 7.5 mg/0.5 mL subcutaneou s pen injector 2023 active Not Available Not Available Not Avai lable Mounjaro 5 mg/0.5 mL subcutaneou s pen injector Inject by subcutane ous route for 28 days. active Not Available Not Available No t Available Mounjaro 2.5 mg/0.5 mL subcutaneou s pen injector 01/25 completed Not Available Not Available Not Available Zepbound 5 mg/0.5 mL subcutaneou s pen injector 2023 active Not Available Not Available Not Avai lable Vitals Date Recorded Body height Body mass index (BMI) Body weight Provider Name and Address Organization Details Last Updated DateTime 02/11/2023 162.56 cm 23 kg/m2 68608.74 g Tiny West [facility] 02/11/2023 10:24:39 Date Recorded Body weight Provider Name an d Address Organization Details Last Updated DateTime 02/11/2023 47277.3 g LEXY Joyner [address], [place], [address], [facility] 03/18/2023 10:54:37 Date Recorded Body height Body mass index (BMI) Body weight Systolic blood pressure Diastolic blood pressure Provider Name and Address Organization Details Last Updated DateTime 03/18/2023 162.56 cm 24.3 kg/m2 44987.96 g 119 mm[Hg] 91 mm[Hg] Tiny West [facility] 10:25:24 Date Recorded Body height Body mass index (BMI) Body weight Systolic blood pressure Diastolic blood pressure Systolic blood pressure Diastolic blood pressure Provider Name and Address Organization Details Last Updated DateTime 162.56 cm 24.4 kg/m2 96766.1 2 g 168 mm[Hg] 121 mm[Hg] 140 mm[Hg] 84 mm[Hg] Jennifer Pulido [facility] 3 16:55:05 Date Recorded Body height Body mass index (BMI) Body weight Systolic blood pressure Diastolic blood pressure Provider Name and Address Organization Details Last Updated DateTime 06/24/2023 162.56 cm 23.8 kg/m2 93770.9 g 126 mm[Hg] 94 mm[Hg] Tiny West [facility] 3 10:53:25 Date Recorded Body height Body mass index (BMI) Body weight Systolic blood pressure Diastolic blood pressure Provider Name and Address Organization Details Last Updated DateTime 01/26/2024 162.56 cm 24 kg/m2 77936.93 g 124 mm[Hg] 81 mm[Hg] Rena Slaterer [facility] 4 09:55:51 Social History Question Answer Notes LastModified by Organizat ion Details LastModified Time Tobacco Smoking Status Never Smoker Roxana Claudy antoine, [facility] 06/24/2023 10:43:10 Do You Have An Advance Directive? No Information n ot available 06/07/2022 What Is Your Level Of Alcohol Consumption? None Information not available 06/07/2022 Are You Blind Or Do You Have Difficulty Seeing? No Information n ot available 06/07/2022 What Is Your Level Of Caffeine Consumption? Heavy Information not available 06/07/2022 How Much Tobacco Do You Chew? None Information not available 06/07/2022 In The 14 Days Before Symptom Onset, Have You Had Close Contact With A Laboratory-confirm ed COVID-19 While That Case Was Ill? No Information n ot available 06/07/2022 In The 14 Days Before Symptom Onset, Have You Had Close Contact With A Person Who Is Under Investigation For COVID-19 While That Person Was Ill? No Information not available 06/07/2022 Have You Been To An Area Known To Be High Risk For COVID-19? Yes Information not available 06/07/2022 Are You Deaf Or Do You Have Serious Difficulty Hearing? No Information not available 06/07/2022 What Type Of Diet Are You Following? REGULAR Information n ot available 06/07/2022 What Is The Highest Grade Or Level Of School You Have Completed Or The Highest Degree You Have Received? 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 No Information not available 06/07/2022 Do You Use Protection During Sex? No Information not available 06/07/2022 Do You Use Your Seat Belt Or Car Seat Routinely? Yes Information not available 06/07/2022 Do You Have Smoke And Carbon Monoxide Detectors In Your Home? Yes Information not available 06/07/2022 How Much Tobacco Do You Smoke? No Information not available 06/07/2022 Do You Feel Stressed (tense, Restless, Nervous, Or Anxious, Or Unable To Sleep At Night)? [id number] Information not available 06/07/2022 Do You Use Any Illicit Or Recreational Drugs? No Information not available 06/07/2022 Do You Use Sunscreen Routinely? No Information not available 06/07/2022 Have You Used IV Drugs? No Information not available 06/07/2022 Sex: Unknown Functional Status Question Answer Note LastModified by Organizat ion Details LastModified Time Do you have difficulty walking or climbing stairs? No Information not available 06/24/2023 Are you able to walk? YESLIMIT Information not available 06/07/2022 Are you able to care for yourself? Yes Information not available 06/24/2023 Do you have difficulty dressing or bathing? No Information not available 06/24/2023 What is your exercise level? Occasional Information not available 06/07/2022 Mental Status None recorded. Family History Relationship Description Onset Age of this Age Resolved Age Notes LastModified by Organization Details LastModified Time Father Malignant tumor of lung vschroedter Not available 01/2023 09:49:18 Father Diabetes mellitus vschroedter Not available 01/2023 09:49:18 Father Diabetes mellitus vschroedter Not available 01/2023 09:49:18 Father Malignant tumor of lung vschroedter Not available 01/2023 09:49:18 Father Malignant tumor of lung vschroedter Not available 01/2023 09:49:18 Father Diabetes mellitus vschroedter Not available 01/2023 09:49:18 Paternal Grandmother Diabetes mellitus vschroedter Not available 01/2023 09:49:18 Paternal Grandmother Diabetes mellitus vschroedter Not available 01/2023 09:49:18 Paternal Grandmother Diabetes mellitus vschroedter Not available 01/2023 09:49:18 Medical History Condition Response Acid Reflux (GERD) Y Gynecological History Statement/Question Response Date of LMP 12/26/2023 On BCP's at Conception? N Was last menstrual period normal Y STIs/STDs N HPV Vaccine N Duration of Flow (days) 5 Current Control Method Partner Vas ectomy Age at First Child 16 Frequency of Cycle (Q days) 28 Sexually Active? Y Age of first menstrual cycle 10 Date of Last Pap Smear 06/07/2022 Sexual Problems? Y LMP Approximate Obstetrics History GPAL:G 5 P 2 1 2 3 Type Value Full Term 2 Spontaneous 2 Premature 1 Living 3 Total 5 Past Encounters Encounter ID Performer Location Encounter Start Date Encounter Closed Date Diagnosis/Indication Diagnosis SNOMED-CT Code Diagnosis ICD10 Code Diagnosis Note [id number] LORI Joyner [facility] [address] [address] 06/07/2022 16:50:04 06/07/2022 17:44:34 Screening for malignant neoplasm of breast 118452510 Z12.39 Non-menopa usal hot flash 7865869089 90222 R23.2 Gynecologi c examination 83641215 Z01.419 Suggested Calcium with Vitamin D 1200-1500m g daily. Patient advised to get an annual flu shot in the fall and she could obtain at [facility] or [facility] care clinic. Also to obtain TDap vaccinatio n if you have not had one in the last 10 years. Recommend yearly mammograms . Encouraged monthly self breast exams. Encourage safe sexual practices, to use condoms and limit partners if not already in a monogamous relationsh ip. Engage in daily exercise of low impact aerobic exercise 45-60 minutes 4-5 times weekly. Avoid tobacco and illicit drugs as well as using moderation with alcohol intake less than 1-2 8 oz beverages daily. This lifestyle behavior pattern will lead to less health conditions and longer life span. If BMI greater than 25 weight watchers or dietary consult advised. All questions have been answered. Patient appears to understand informatio n, but if you have any questions please call or respond to this email. WWEMedical hx : Ovarian cyst removal x 2 (laprascop ic), ovaries remainTrea vincenzo for a UTI one week ago, symptoms have resolvedPa rtner with vasectomy for controlNo hx of abnormal papsLast pap 2013Pap done todaySTI added to papHas been having some hot flashes once in awhile. Labs ordered. Having normal monthly periods. Does not desire an OCP.Mammog zhou last 10 years ago, order givenNeeds to establish care with a PCP, encouraged thisClyde perriny, discussedG enetic testing, discussedR TC in 1 year for WWE or sooner if needed BP today 142/80. No symptoms. Encouraged to establish care with PCP, to go to the ED with any SOB, chest pains, headaches/ blurry vision. 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 Recently lost her father.Fee ling sad at times since losing her fatherFind s it hard to eat healthy, does not have much time to exerciseMe als are irregular given warehouse supervisor 3rd shift scheduleMe dical hx : Elevated cholestero l and hx of HTN in the pastCurren tly on no medication sPartner with vasectomy for BCDoes not snore, feels rested We discussed the weight management program in-depthLa bs orderedDie tican appointmen t scheduledE KG orderedDec lines medication for mood at this time, therapy encouraged . No CRISTOPHER. ED precaution s given.Exer cise recommenda tions discussedW e discussed medication options. Will await labs and EKG, f/u in 2 weeks to decide on treatment options. Time spent in visit is a total of 45 mins with at least 50% of visit consisting of counseling and review of plan of care. Gynecologi c examination [id number] Z01.419 [id number] LORI Joyner [facility] [address],[facility] [place] [address] 07/16/2022 10:19:37 07/16/2022 12:56:55 Obesity 254890907 E66.9 She has had a normal EKGLabs showed elevated cholestero l and LDL - we discussed this. Weight loss, exercise, healthy eating to help with this.Vitsteffi in D low - started supplement ationShe saw the clinical practitioner, doing well incorporat ing changes into diet!Start ing to exercise! We discussed all weight management medication s in-depth. We discussed injectable medication vs oral medication . We discussed administra tion, side effects, risk and benefits all medication . She would like to move forward with trail of phentermin e and topiramate . Will start with topiramate 25mg and phentermin e 15mg.Will f/u in 2 weeks for checkTo watch for any negative SE and call the office with any issues Time spent in visit is a total of 35 mins with at least 50% of visit consisting of counseling and review of plan of care. [id number] LORI Joyner [facility] [address],[facility] [place] [address] 08/06/2022 09:28:46 08/06/2022 09:55:31 Obesity 973064236 E66.9 47yo Presents for follow-up on weight management . She has lost 3lbs since AR. She has been making healthier food choices. Exercising more, going on walks and strength training. 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 She is seeing the clinical practitioner. No negative SE since starting the medication She has motivation and is excited to continue in the program She would like to continue with same dose of phentermin e for now - 15mg dailyWill increase topiramate from 25mg to 50mg dailyConti nue exerciseCo ntinue with healthy diet choicesRTC in 1 month for f/u Time spent in visit is a total of 20 mins with at least 50% of visit consisting of counseling and review of plan of care. [id number] LORI Joyner [facility] [address],[facility] [place] [address] 09/03/2022 09:55:09 09/03/2022 14:32:23 Obesity 244737148 E66.9 We discussed all options moving forward in regards for weight loss medication . We discussed contrave, vs increasing phentermin e dose vs injectable medication (the new GLP1 agonist).W e discussed R/B of all medication sShe denies any family hx of medullary thyroid cancer or person hx of thyroid cancerShe denies any hx of multiple endocrine neoplasia type 2We reviewed that this is being used off label for weight lossWe reviewed the BBW on this medication , reviewed increase in thyroid C-cell tumor incidence observed in rodents - but human reverence unknown.Wayne napoles agrees to these riskReregency hospital company ed that we are using this medicaton off label for weight lossReview ed administra tion. She will do one injection weekly for 4 weeks, RTC in 1 month for f/uContinu e with exerciseCo ntinue with clinical practitioner Time spent in visit is a total of 25 mins with at least 50% of visit consisting of counseling and review of plan of care. [id number] LORI Joyner [facility] [address],[facility] [place] [address] 10/05/2022 10:43:14 10/05/2022 12:25:00 Obesity 193669552 E66.9 We agreed to continue with mounuri, will increase dose to 5mg SQ per weekR/B of medication discussed and accepted by patientWe discussed the cost of this medication and potential issue getting it from the pharmacy. Rx sent, she will update us on if she has any issues obtaining the medication .Continue with exerciseCo ntinue with healthy eating BP today 146/90 - she will f/u with PCP for BP check. Encouraged her to check at home as well. ED precaution s discussed Time spent in visit is a total of 25 mins with at least 50% of visit consisting of counseling and review of plan of care. Prediabetes 663260406 R7 3.03 Hyperlipidemia 47561973 E78.5 Elevated blood-pressure reading without diagnosis of hypertension 706727957 R03.0 [id number] Daphne Witt [facility] [address],[place] [address] 11/19/2022 09:41:19 11/19/2022 10:47:04 Obesity 004345480 E66.9 We agreed to continue with brianne desires to stay at same doseR/B of medication discussed and accepted by patientWe discussed the cost of this medication and potential issue getting it from the pharmacy. Rx sent, she will update us on if she has any issues obtaining the medication .Continue with exerciseCo ntinue with healthy eating Keep a BP log at home and bring in to next visit, she has been monitoring at home and states pressures have been normal Time spent in visit is a total of 25 mins with at least 50% of visit consisting of counseling and review of plan of care. Prediabetes 139535450 R7 3.03 Hyperlipidemia 27598817 E78.5 [id number] Daphne Witt [facility] [address],[place] [address] 12/17/2022 09:38:37 12/17/2022 11:28:27 Obesity 980879876 E66.9 We agreed to continue with nellie deckers to increase dose to 7.5mg SQ / weekR/B of medication discussed and accepted by patientWe discussed the cost of this medication and potential issue getting it from the pharmacy. Rx sent, she will update us on if she has any issues obtaining the medication .Continue with exerciseCo ntinue with healthy eatingRTC in 4 weeks for f/u Time spent in visit is a total of 25 mins with at least 50% of visit consisting of counseling and review of plan of care. Prediabetes 233359667 R7 3.03 Hyperlipidemia 90085696 E78.5 [id number] [facility] [address],[place] [address] 01/14/2023 10:02:23 01/14/2023 11:16:40 Obesity 617225986 E66.9 We agreed to continue with mounuri, desires to increase dose to 7.5mg SQ / weekR/B of medication discussed and accepted by patientShe is almost down to a normal BMI range. We discussed her weight loss journey. We discussed plan moving forward to maintain weight loss in the future. Discussed importance of regular exercise, healthy eating. Discussed weaning off the medication in the future.We discussed the cost of this medication and potential issue getting it from the pharmacy. Rx sent, she will update us on if she has any issues obtaining the medication .Continue with exerciseCo ntinue with healthy eatingRTC in 4 weeks for f/u Time spent in visit is a total of 20 mins with at least 50% of visit consisting of counseling and review of plan of care. [id number] Daphne Witt ADRI[facility] [address],[place] [address] 02/10/2023 09:29:27 02/10/2023 10:25:25 Vaginitis 58012239 N76.0 suspect yeast infectionv aginitis panel sentSTI endocervic al testing sentvulvar care guidelines discussed, d/c use of scented soapsRx sent, R/B/A discussedR TC if symptoms persist past treatment Time spent in visit is a total of 20 mins with at least 50% of visit consisting of counseling and review of plan of care. Vulval irritation 738522 003 N90.89 Venereal d isease screening 348112763 Z11.3 [id number] Daphne Witt [facility] [address],[place] [address] 02/11/2023 09:50:09 02/11/2023 12:02:13 Obesity 409257308 E66.9 She is almost down to a normal BMI range. We discussed her weight loss journey. We discussed plan moving forward to maintain weight loss in the future. Discussed importance of regular exercise, healthy eating. Discussed weaning off the medication in the future.We discussed the cost of this medication and potential issue getting it from the pharmacy. Rx sent, she will update us on if she has any issues obtaining the medication .Continue with exerciseCo ntinue with healthy eatingRTC in 4 weeks for f/u Time spent in visit is a total of 20 mins with at least 50% of visit consisting of counseling and review of plan of care. [id number] LORI Joyner [facility] [address],[place] [address] 03/18/2023 10:21:40 03/18/2023 10:59:10 Obesity 244139746 E66.9 She is almost down to a normal BMI range. We discussed her weight loss journey. We discussed plan moving forward to maintain weight loss in the future. Discussed importance of regular exercise, healthy eating. Discussed weaning off the medication in the future. We discussed the cost of this medication and potential issue getting it from the pharmacy. Rx sent, she will update us on if she has any issues obtaining the medication . Continue with exercise Continue with healthy eating RTC in 4 weeks for f/u Time spent in visit is a total of 20 mins with at least 50% of visit consisting of counseling and review of plan of care. [id number] LORI Joyner [facility] [address],[place] [address] 04/14/2023 16:36:00 04/15/2023 10:17:44 Obesity 052977705 E66.9 we discussed lifestyle modificati ons to help her maintain her weight loss. Discussed exercise, healthy eating, protein intake. Recommende d she consult with the clinical practitioner again.She is going to make these changes, we discussed weaning off the medication . We have a plan.She will RTC in 4 weeksR/B discussed of medication Time spent in visit is a total of 20 minwith at least 50% of visit consisting of counseling and review of plan of care. [id number] LORI Joyner [facility] [address],[place] [address] 06/24/2023 10:42:27 06/24/2023 11:16:50 Obesity 547046308 E66.9 she is doing well, maintainin g weight loss - weaning down on mounjaro doseshe is exercising , making healthy diet choicesref ills sent, R/B/A discussedR TC in 3 months or sooner if needed Time spent in visit is a total of 15 mins with at least 50% of visit consisting of counseling and review of plan of care. [id number] LORI Joyner [facility] [address] [address] 01/26/2024 09:48:37 01/26/2024 10:23:38 Gynecologic examination 36763406 Z01.419 WWEpap updateddec lined STI screenmamm ogram order givenColon CA screening discussed - would like cologuard kitfasting labs orderedenc ouraged annual exam with PCPRTC in 1 yr or sooner if needed Suggested Calcium with Vitamin D daily. Patient advised to get an annual flu shot in the fall and she could obtain at [facility] or [facility] care clinic. Also to obtain TDap vaccinatio n if you have not had one in the last 10 years. Recommend yearly mammograms . Encouraged monthly self breast exams. Encourage safe sexual practices, to use condoms and limit partners if not already in a monogamous relationsh ip. Engage in daily exercise of low impact aerobic exercise 45-60 minutes 4-5 times weekly. Avoid tobacco and illicit drugs. This lifestyle behavior pattern will lead to less health conditions and longer life span. If BMI greater than 25 dietary consult advised. All questions have been answered. Patient appears to understand informatio n, but if you have any questions please call or respond to this email. Screening for malignant neoplasm of breast 186002089 Z12.39 Adult [facility] th examination 164420690 Z00.00 Weight gain 8916291 R63. 5 refills of mounjaro sentdiscus sed r/b/aconti nue regular exercise, healthy diet Health Concerns Section Related Observation LastModified by Organization Aziza parker LastModified Time None Recorded Concern Status LastModified by Organization Details LastModified Time None Recorded Advance Directives Directive N: Payers Encounter Date Sequence Insurance Name Policy Number Policy Dave Covered Member ID Dave Member ID Guarantor Name 02/11/2023 1 [place] [id number] Lilian Aldana [id number] Lilian Jovan 03/18/2023 1 [place] [id number] Lilian Jovan [id number] Lilian Jovan 04/14/2023 1 [place] [id number] Lilian Jovan [id number] Lilian Aldana 06/24/2023 1 [place] [id number] Lilian Jovan [id number] Lilian Aldana 01/26/2024 1 [facility] [id number] Lilian Aldana [id number] Lilian Aldana Notes Date Note Type Note Provider Name and Address Organization Details Recorded Time 02/11/2023 text/html 48yopresents for weight management f/ussavannah is doing well, continues to loose weightmaking lifestyle changesno negative SE LORI Joyner [address], [place], [address], [facility] 02/11/2023 11:32:59 03/18/2023 text/html 48yopresents for weight management f/reji is doing well, continues to loose weightmaking lifestyle changesno negative SE LORI Joyner [address], [place], [address], [facility] 03/18/2023 10:57:54 04/14/2023 text/html 48yopresents for weight management f/reji continues to maintain her weight loss. She went about 3 weeks without the mounjaro and did have increased hunger, cravings, and some weight gain. She is back on it now and doing well. She would like to discuss a plan to wean off of the medication and continue to maintain her weight loss. LORI Joyner [address], [place], [address], [facility] 04/15/2023 09:29:48 06/24/2023 text/html 48yopresents for weight management f/reji continues to maintain her weight loss while weaning down on her mounjaro doseshe is feeling wellcontinues to have normal bowel movementsno negative SEexercisingjust started new job LORI Joyner [address], [place], [address], [facility] 06/24/2023 11:10:16 01/26/2024 text/html Annual GYNReport ed bypatient.Menstrual cycle:Normal menses Urinary symptoms:No hematuria; No incontinence Vulva:No genital lesion Vagina:Normal vaginal discharge Breast:No breast pain; No breast lump; No nipple discharge Current Contraception:Satisfi ed with current contraception; Partner had vasectomy Sexual complaints:No sexual complaints; No pain during intercourse; Normal libido Menopausal Symptoms:No menopausal symptoms; Normal vaginal lubrication Psychological symptoms:No depression; No anxiety; No PMDD Preventive measures:Encourage self breast examination; Encourage regular exercise; Encourage no tobacco use; Encourage regular mammograms starting age 40Notes:no h/o abnormal papslast pap 05/2022 - normalmammogram last 10 yrs agono colon CA screening yet on mounjaro 5mg weekly, maintaining weight loss. Exercising/eating healthy. Wants to continue at this dose. 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 LORI Joyner [address], [place], [address], [facility] 01/26/2024 10:23:21 OBGyn Episode No OBEpisode recorded.
--- OUTSIDE RECORDS SUMMARY | 2024-12-28 16:01 | XMS_ITS | Clinical Summary ---
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 Name Role Phone Flaquito Bowman MD Primary Care Provider [phone] Allergies No known active allergies Medications No known medications Family History Medical History Relation Comments Diabetes Father Hypertension Father Cancer Mother Relation Status Comments Father Alive Mother Social History Tobacco Use Types Packs/Day Years Used Date Smoking Tobacco: Never Smokeless Tobacco: Never Alcohol Use Standard Drinks/Week Comments No 0 (1 standard drink = 0.6 oz pur e alcohol) Comments No Sex and Gender Information Value Date Recorded Sex Assigned at Not on file Legal Sex Female 5:00 PM CDT Gender Identity Not on file Sexual Orientation Not on file Last Filed Vital Signs Vital Sign Reading Time Taken Comments Blood Pressure 122/70 09/14/2018 12:25 PM CDT Pulse 65 09/14/2018 12:25 PM CDT Temperature 36.2 C (97.2 F) 09/14/2018 12:25 PM CDT Respiratory Rate 16 09/14/2018 12:25 PM CDT Oxygen Saturation 100% 09/14/2018 12:25 PM CDT Inhaled Oxygen Concentration - - Weight 63.5 kg (140 lb) 09/14/2018 12:25 PM CDT Height 160 cm (5' 3 ) 09/14/2018 12:25 PM CDT Body Mass Index 24.8 09/14/2018 12:25 PM CDT Plan of Treatment Health Maintenance Due Date Last Done Comments Cervical Cancer Screening Pa p Smear (Age 30 to 64) Every 3 Years 1974 Colorectal Cancer Screening Colonoscopy (10 Years) 1974 Annual Physical 1977 Hepatitis C 02/03/1992 DTaP, Tdap and Td Vaccines ( 1 - Tdap) 1993 Hepatitis B Vaccines (1 of 3 - 19+ 3-dose series) 1993 Cervical Cancer Screening Pa p with HPV Testing (Age 30 to 64) Every 5 Years 02/03/2004 Cervical Cancer Screening with HPV 02/03/2004 Mammogram Screening 2014 Zoster Vaccines (1 of 2) 02/03/2024 COVID-19 Vaccine (1 - 2023-2 5 season) 2024 Influenza Adult (#1) 2024 Meningococcal B Vaccine Aged Out No l onger eligible based on patient's age to complete this topic Meningococcal Vaccine Aged Out No renee mike eligible based on patient's age to complete this topic Pneumococcal Vaccine: Pediat rics (0 to 5 Years) and At-Risk Patients (6 to 64 Years) Aged Out No longer eligible b ased on patient's age to complete this topic RSV Immunizations Under 20 Months Aged Out No longer eligible based on patient's age to complete this topic Insurance [place] [address] Care 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
[2024-12-28 16:09] VITALS: BP 143/83; PULSE 82; RESP 15; TEMP 36.7; O2SAT 100
--- NOTE | 2024-12-28 16:11 | ED.FEMALEGU ---
HPI - Female Genitourinary General Chief complaint: Urogenital-Female Stated complaint: UTI Time Seen by Provider: 12/28/24 16:15 Source: patient Mode of arrival: ambulatory Limitations: no limitations History of Present Illness HPI Narrative: Lilian is a 49-year-old female patient presenting to the clinic today with complaints of possible urinary tract infection and vaginal odor/itching. She reports she has had burning with urination and vaginal odor fishy smell times 3-4 weeks. States she has had bacterial vaginosis before and this feels as though she may have bacterial vaginosis. She is reporting burning with urination and some lower abdominal discomfort. Denies any back pain, fevers, chills, or body aches. Has been doing a lot of Epson salt soaks in the bathtub over the past few weeks. Related Data Home Medications ?Medication ?Instructions ?Recorded ?Confirmed ?Last Taken ?Type tirzepatide 2.5 mg/0.5 mL 2.5 mg subcut DIRECTED 02/28/23 06/19/24 Unknown History subcutaneous pen injector (Mounjaro) Allergies Allergy/AdvReac Type Severity Reaction Status Date / Time No Known Allergies Allergy Verified 12/28/24 16:17 Review of Systems Review of Systems: Pertinent positives per HPI. Patient denies any fever, chills, rash, headache, visual changes, dizziness, cough, runny nose, sore throat, shortness of breath, chest pain, palpitations, nausea, vomiting, diarrhea, constipation, abdominal pain, or any urinary issues. [facility] Past Medical History Medical History Ovarian cyst Surgical History Surgical History History of removal of ovarian cyst Family History Family History Other Diabetes mellitus High cholesterol Hypertension Social History Social History Smoking status: Former smoker Additional smoking assessment comments: quit 2009 Alcohol intake: current Alcohol use details: rare Substance use type: does not use Living arrangements: with family Gender identity (if verbalized by the patient): Female Comments At the time of my signature, I reviewed and agree with the nursing past medical, surgical, social, and family history. There is no relevant family history pertinent to the patient complaint. Exam Narrative: General: Well-developed, well nourished, in no apparent distress. Head: Normocephalic, atraumatic. Cardio: Regular rate and rhythm, s1 and s2 normal, no murmur appreciated. Resp: Clear to auscultation bilaterally, no rhonchi, rales, wheezing or rubs. Abdomen: Soft, pliable, bowel sounds present in all quadrants, mild suprapubic tender to palpation, no organomegly, no CVAT tenderness. : Deferred Course Course Emergency Course: Portions of this record may have been created with voice recognition software. Level of Care: Express Care Visit Vital Signs Vital signs: Vital Signs Temperature 36.7 C 12/28/24 16:09 Pulse Rate 82 12/28/24 16:09 Respiratory Rate 15 12/28/24 16:09 Blood Pressure 143/83 H 12/28/24 16:09 Pulse Oximetry 100 12/28/24 16:09 Oxygen Delivery Room Air 12/28/24 16:09 Temperature 36.7 C 12/28/24 16:09 Pulse Rate 82 12/28/24 16:09 Respiratory Rate 15 12/28/24 16:09 Blood Pressure 143/83 H 12/28/24 16:09 Pulse Oximetry 100 12/28/24 16:09 Oxygen Delivery Room Air 12/28/24 16:09 Vital signs reviewed MDM - Female Genitourinary MDM Narrative Medical decision making narrative: At the time of visit patient is resting comfortably on the exam table. Patient appears to be nontoxic. Labs: Urinalysis shows trace of leukocytes, protein, and blood. We will send urine for culture. Plan: I suspect patient has UTI/BV. Prescription for Macrobid and Flagyl was sent to the pharmacy. Supportive measures were discussed with the patient and they voiced understanding discharge instructions and agrees to treatment plan. Return precautions reviewed Differential Diagnosis Differential diagnosis: Likely urinary tract infection, bacterial vaginosis, cervicitis, vaginitis and cystitis Lab Data Labs: Lab Results 12/28/24 Range/Units 16:15 POC Urine Color Yellow POC Urine Clarity Clear POC Urine pH 7.0 POC Ur Specif [place] 1.030 POC Urine Protein Trace (Negative) POC Ur Glucose (UA) Negative (Negative) POC Urine Ketones Negative (Negative) POC Urine Blood Trace (Negative) POC Urine Nitrite Negative (Negative) POC Urine Bilirubin Negative (Negative) POC Urine Urobilinogen 0.2 POC U Leukocyte Esteras Trace (Negative) Discharge Plan Discharge Clinical Impression: Bacterial vaginosis Urinary tract infection Qualifiers: Urinary tract infection type: acute cystitis Hematuria presence: with hematuria Qualified Code(s): N30.01 - Acute cystitis with hematuria Patient Disposition: Home, Self-Care Condition: Stable Instructions: Antibiotic Form, Bacterial Vaginosis (ED), Urinary Tract Infection in Women (ED) Additional Instructions: Urinalysis shows trace of bacteria and trace of blood in your urine. We will send urine for culture Take Macrobid and Flagyl as prescribed Increase fluids and stay well hydrated Wipe front to back. May use wet wipes. Avoid tub baths If sexually active- pee before and after intercourse. Wear cotton panties Avoid tight clothing up against the genitals Follow up with your PCP in 1 week if symptoms persist. Patient Language: [place] Prescriptions: New metronidazole 500 mg tablet 500 mg PO Q12H 7 Days Qty: 14 0RF nitrofurantoin monohyd/m-cryst [Macrobid] 100 mg capsule 100 mg PO Q12H 5 Days Qty: 10 0RF Rx Instructions: must administer with a meal/food No Action Mounjaro 2.5 mg/0.5 mL pen injector 2.5 mg SUBCUT DIRECTED Follow-up/Referrals: PHYSICIAN,PILE DRIVER OPERATOR HELPER [Primary Care Provider] - Time of Disposition: 16:24 Quality NIHSS Nursing Documentation ED NIHSS nursing documentation: reviewed/agree
[2024-12-28 16:20] LABS: EDUAAPPEAR Clear; EDUABILI Negative (Negative); EDUABLOOD Trace (Negative); EDUACOLOR1 Yellow; EDUAGLUCOSE Negative (Negative); EDUAKETONE Negative (Negative); EDUALEUKO Trace (Negative); EDUANITRATE Negative (Negative); EDUAPROTEIN Trace (Negative); EDUAUROBILI 0.2
== END 2024-12-28 16:27 | disposition home or self-care (01) ==
PROVIDERS: Emergency Provider Nurse Practitioner Family
DX: N76.0 Acute vaginitis (principal); N30.01 Acute cystitis with hematuria; Z87.891 Personal history of nicotine dependence
CPT/HCPCS: 81003; 87077; 87086; 87186; 99213; G0463

== ENCOUNTER 2025-04-20 16:21 | Emergency (ER) | payer OTHER, SELFPAY ==
--- NOTE | 2025-04-20 16:23 | ED_ITS ---
HPI - General Adult General Chief complaint: Urogenital-Female Stated complaint: ?UTI Time Seen by Provider: 04/20/25 16:22 Source: patient Mode of arrival: ambulatory Limitations: no limitations History of Present Illness HPI narrative: 50-year-old female patient presents to the [facility] with complaints of urinary symptoms for the past 3 days. Patient states she has had urgency and burning after she urinates. Patient denies taking anything for the pain. Patient states she does get UTIs pretty frequent. Patient states she tried to go to the [facility] convenient care yesterday but they were too busy and decided to wait to come be seen today. Related Data Home Medications ?Medication ?Instructions ?Recorded ?Confirmed ?Last Taken ?Type tirzepatide 2.5 mg/0.5 mL 2.5 mg subcut DIRECTED 02/28/23 06/19/24 Unknown History subcutaneous pen injector (Mounjaro) Allergies Allergy/AdvReac Type Severity Reaction Status Date / Time No Known Allergies Allergy Verified 04/20/25 16:31 Review of Systems Review of Systems: CONSTITUTIONAL: Denies fever, chills, or sweats. EYES: Denies visual changes, redness, or discharge. ENT: Denies rhinorrhea, congestion, sore throat, or otalgia. CARDIOVASCULAR: Denies chest pain, palpitations, or edema. RESPIRATORY: Denies cough or dyspnea. GASTROINTESTINAL: Denies abdominal pain, nausea, vomiting, or diarrhea. GENITOURINARY: Positive dysuria denies gross hematuria. SKIN: Denies rash or itching. MUSCULOSKELETAL: Denies back pain, joint pain, or myalgia. NEUROLOGIC: Denies headache, numbness, or weakness. PSYCHIATRIC: Denies anxiety or depression. [facility] Past Medical History Medical History Ovarian cyst Surgical History Surgical History History of removal of ovarian cyst Family History Family History Other Diabetes mellitus High cholesterol Hypertension Social History Social History Smoking status: Former smoker Additional smoking assessment comments: quit 2010 Alcohol intake: current Alcohol use details: rare Substance use type: does not use Living arrangements: with family Gender identity (if verbalized by the patient): Female Comments At the time of my signature I agree with nursing past medical history, surgical, social, and family history. There is no relevant family history pertinent to the presenting complaint. Exam Narrative: GENERAL: Well-appearing, well-nourished, and in no acute distress. HEAD: Normocephalic, atraumatic. EYES: PERRLA and EOMI. ENT: Nares clear, no rhinorrhea or epistaxis. Mucous membranes moist. NECK: Supple. No lymphadenopathy CHEST: Clear to auscultation. No respiratory distress. HEART: Regular rate and rhythm. No murmur heard. Normal peripheral pulses. ABDOMEN: Soft, nontender, nondistended, normal active bowel sounds. no CVA tenderness on percussion EXTREMITIES: Normal range of motion. No edema. SKIN: Warm, dry, no rash. NEURO: No focal deficits. Alert and oriented x3. Course Course Level of Care: Express Care Visit Vital Signs Vital signs: Vital Signs Temperature 36.4 C 04/20/25 16:28 Pulse Rate 78 04/20/25 16:28 Respiratory Rate 16 04/20/25 16:28 Blood Pressure 120/76 04/20/25 16:28 Pulse Oximetry 100 04/20/25 16:28 Oxygen Delivery Room Air 04/20/25 16:28 Temperature 36.4 C 04/20/25 16:28 Pulse Rate 78 04/20/25 16:28 Respiratory Rate 16 04/20/25 16:28 Blood Pressure 120/76 04/20/25 16:28 Pulse Oximetry 100 04/20/25 16:28 Oxygen Delivery Room Air 04/20/25 16:28 vital signs reviewed. Medical Decision Making MDM Narrative Medical decision making narrative: plan of care for patient is discharge home with oral antibiotics for a UTI. Discussed with patient that we will send her urine off for culture if the culture shows that she needs to have a different antibiotic we will call her in and updated prescription at that time. Patient verbalized understanding denies any other questions or concerns at this time. Differential Diagnosis Differential Diagnosis: Differential diagnosis: Uncomplicated lower UTI, uncomplicated UTI, pyelonephritis Vital Signs Vital Signs: Vital Signs Temperature 36.4 C 04/20/25 16:28 Pulse Rate 78 04/20/25 16:28 Respiratory Rate 16 04/20/25 16:28 Blood Pressure 120/76 04/20/25 16:28 Pulse Oximetry 100 04/20/25 16:28 Oxygen Delivery Room Air 04/20/25 16:28 Temperature 36.4 C 04/20/25 16:28 Pulse Rate 78 04/20/25 16:28 Respiratory Rate 16 04/20/25 16:28 Blood Pressure 120/76 04/20/25 16:28 Pulse Oximetry 100 04/20/25 16:28 Oxygen Delivery Room Air 04/20/25 16:28 Lab Data Labs: Lab Results 04/20/25 Range/Units 16:34 POC Urine Color Yellow POC Urine Clarity Cloudy POC Urine pH 7.5 POC Ur Specif [place] 1.025 POC Urine Protein Trace (Negative) POC Ur Glucose (UA) Negative (Negative) POC Urine Ketones Negative (Negative) POC Urine Blood Trace (Negative) POC Urine Nitrite Negative (Negative) POC Urine Bilirubin Negative (Negative) POC Urine Urobilinogen 0.2 POC U Leukocyte Esteras 2+ (Negative) Critical Care Time Critical Care Time Critical Care Time: No Discharge Plan Discharge Clinical Impression: Urinary tract infection Qualifiers: Urinary tract infection type: acute cystitis Hematuria presence: with hematuria Qualified Code(s): N30.01 - Acute cystitis with hematuria Patient Disposition: Home Condition: Stable Instructions: Antibiotic Form, Urinary Tract Infection in Women (ED) Additional Instructions: We will send a urine culture off to the lab; if the culture identifies an organism that the prescribed antibiotic will not treat, you will receive a phone call from an urgent care staff member and an appropriate antibiotic will be prescribed. -Your symptoms should begin to improve within a day of starting antibiotics. But you should finish all the antibiotic pills you get. Otherwise your infection might come back. -Also recommend: drink more fluid. It might help flush out germs, and it does no harm -Tylenol/ibuprofen prn for pain or fever -Follow-up with your primary care provider for urine recheck or seek ER visit if condition worsens with high fever, nausea, vomiting and severe back pain. Patient Language: Nigerien Prescriptions: New nitrofurantoin monohyd/m-cryst [Macrobid] 100 mg capsule 100 mg PO Q12H 5 Days Qty: 10 0RF Rx Instructions: must administer with a meal/food No Action Mounjaro 2.5 mg/0.5 mL pen injector 2.5 mg SUBCUT DIRECTED Follow-up/Referrals: UNKNOWN,DOCTOR [Primary Care Provider] - Time of Disposition: 16:40
--- OUTSIDE RECORDS SUMMARY | 2025-04-20 16:24 | XMS_ITS | Encounter Summary ---
Author Organization [facility] Healthcare Address [address] [place] [address] Care Team Providers Care Supervisor Leaf Spring Repair Name Role Phone Bekah Curry HUMAN PERFORMANCE PROFESSOR Primary Care Provider + Encounter Details Date Type Department Care Team (Late st Contact Info) Description 07/31/2021 Telephone [facility] [address] [place] [address] Room 3420 (Third Floor) [place] [address] Lucia Jade RN Social History Tobacco Use Types Packs/Day Years Used Date Smoking Tobacco: Never Assessed Comments Unknown Sex and Gender Information Value Date Recorded Sex Assigned at Not on file Legal Sex Female 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 11/29/2021 12/03/2021 03/29/2022 3:05 AM C DT COVID19 12/03/2021 12/03/2021 12/13/2021 3:05 AM RUG CLEANER documented as of this encounter Care Teams Supervisor Leaf [place] Repair Relationship Specialty Start Date End Date Bekah Curry, ADRIANA PCP - General Nurse Practitioner 04/05/23 documented as of this encounter
--- OUTSIDE RECORDS SUMMARY | 2025-04-20 16:24 | XMS_ITS | Referral Summary ---
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
--- OUTSIDE RECORDS SUMMARY | 2025-04-20 16:24 | XMS_ITS | Clinical Summary ---
Author Organization [facility] Virtual Care Address [address] [place] [phone] Phone Care Team Providers Care Senior Quality Analyst Name Role Phone Bekah Curry OVERHEAD GARAGE DOOR HANGER Primary Care Provider + Allergies No known [...] on file Legal Sex Female 5:45 PM MERCANTILE REPORTER Gender Identity Not on file Sexual Orientation [...] 5 season) 2024 07/27/2021, 06/23/2021 Influenza Vaccine (Season Ended) 2025 10/04/2021, 10/26/2019, 01/09/2014 Hepatitis B Screening Completed 03/08/2019 , 01/09/2014 Pneumococcal vaccine <65 Aged Out No longer eligible based on patient's age to complete this topic Insurance [employer] [employer] Address: [facility] [id number] [place] [phone] Care Teams Senior Quality Analyst Relationship Specialty Start Date End Date Bekah Curry NP PCP - General Nurse Practitioner 04/05/23
--- OUTSIDE RECORDS SUMMARY | 2025-04-20 16:24 | XMS_ITS | Data Portability ---
Author Organization [facility] [employer], Main Office Address [address] [place] [address] Assessment No assessment recorded. Plan of Treatment Reminders Order Date Submit Date Provider Last Modified By Organization Details Last Modified Time Details Appointments None recorded. Lab bacterial vaginosis + vaginitis panel, vaginal [address], [address] [place] [address], [id number], 3 08:17:15 urinalysis, dipstick 2022 023 [facility], [address] [place] [address], [phone], 3 10:37:45 culture, urine + sensitivity [address], [address] [place] [address], [address], 3 07:54:41 Referral None recorded. Procedures None recorded. Surgeries None recorded. Imaging None recorded. Medication Orders None recorded. Patient TargetsNo targets recorded. Patient Instructions Encounter Date Encounter Id Patient Instructions Last Modified By Organization Details Last Modified Time 02/09/2023 [id number] [email or web address]. [email or web address] Not available 02/09 08:52:05 Reason for Referral None Reported. Results Created Date Observation Date Name Description Value Unit Range Abnormal Flag Note LastModifiedBy Organization Detail LastModifiedTime 02/10/20 23 02/09/2023 CULTU RE URINE urc ===== ===== ===== ===== ===== ===== ===== ===== ===== ===== ===== ===== ===== ===== ===== ===== ===== ===== ===== ===== ===== ===== ===== ===== CULTU RE NO.: [id number] Exam Statu s: Final Exam Type: CULTU RE URINE ===== ===== ===== ===== ===== ===== ===== ===== ===== ===== ===== ===== ===== ===== ===== ===== ===== ===== ===== ===== ===== ===== ===== ===== Cultu re Repor t: Organ ism #01 Esche sonam a coli (escc ol) Antib iotic s escco l Achie vable Achie vable (01) Dosag e Serum Level Urine Level mcg/m l mcg/m l Shannan nohemi <=2 S 021M Ampic illin <=2 S 021M Ampic illin /Sulb actam <=2 S 021M Cefaz hailey <=4 S 021M Cefep petr <=1 S 021M Cefox itin <=4 S 021M Ceftr iaxon e <=1 S 021M Cipro floxa nohemi <=0.2 5 S 021M ESBL NEG - 021M Genta micin <=1 S 021M Levof loxac in <=0.1 2 S 021M Merop enem <=0.2 5 S 021M Piper acill in./T azaba <=4 S 021M Tobra mycin <=1 S 021M Trmet hopri m.Sul fa <=20 S 021M rt - Test Card Code AST-G N 021M o2 - Final Organ ism ESCHE R 021M af - Antib iotic Fami TRIME T 021M af - Antib iotic Famil y Na ap - Pheno type Name WILD 021M ap - Pheno type Name Nitro furan toin <=16 S 021M Not Available [facility] (Lab) [address] [place], [address], 02/11/2023 07:58:22 02/10/20 23 02/11/2023 BACTE RIAL VAGIN OSIS, LUCERO atopobium vaginae High - 2 score abnormal Not Available [facility] (Lab) [address] [place], [address], 02/11/2023 06:11:45 02/10/20 23 02/11/2023 BACTE RIAL VAGIN OSIS, LUCERO bvab 2 Low - 0 score Not Available [facility] (Lab) [address] [place], [address], 02/11/2023 06:11:45 02/10/2002/11/2023 BACTE RIAL VAGIN OSIS, LUCERO megasphaera 1 Low - 0 score abnormal . Calcu late total score by clarita g the 3 indiv idual bacte rial vagin osis (BV) marke r score s toget her. Total score is inter prete d as follo ws: Total score 0-1: Indic ates the absen ce of BV. Total score 2: Indet ermin ate for BV. Addit ional clini gale data shoul d be evalu ated to estab joni a diagn osis. Total score 3-6: Indic ates the prese nce of BV. . This test was devel oped and its perfo rmanc e maria fernanda cteri stics deter mined by [facility]. It has not been clear ed or appro jay jay by the Food and Drug Admin istra tion. Perfo rmed at: =G - [facility] [place] [facility] , [place] [address] Lab Direc tor: Ta buckner MD, Phone : [phone] Not Available [facility] (Lab) [address] [place], [address], 02/11/2023 06:11:45 02/10/2002/09/2023 urina lysis , dipst ick Leukocytes (reference range: negative saray/ l) Modera te Not Available [address], [address], 02/09/2023 08:39:12 02/10/2002/09/2023 urina lysis , dipst ick Nitrite (reference rage: negative mg/dl) negati ve Not Available [address], [address], 02/09/2023 08:39:12 02/10/2002/09/2023 urina lysis , dipst ick Protein (reference range: negative mg/dl) Trace Not Available [address], [address], 02/09/2023 08:39:12 02/10/2002/09/2023 urina lysis , dipst ick pH (reference range: 5-7) 5.0 Not Available [address], [address], 02/09/2023 08:39:12 02/10/2002/09/2023 urina lysis , dipst ick Blood (reference range: negative Delonte/ l) Non-He molyze d: Trace Not Available [address], [address], 02/09/2023 08:39:12 02/10/2002/09/2023 urina lysis , dipst ick Specific [place] (reference range: 1.005-1.030) 1.000 Not Available [address], [address], 02/09/2023 08:39:12 02/10/20 23 02/09/2023 urina lysis , dipst ick Ketone (reference range: negative mg/dl) Trace Not Available [address], [address], 02/09/2023 08:39:12 02/10/2002/09/2023 urina lysis , dipst ick Bilirubin (reference range: negative mg/dl) Small Not Available [address], [address], 02/09/2023 08:39:12 02/10/2002/09/2023 urina lysis , dipst ick Glucose (reference range: negative mg/dl) Negati ve Not Available [address], [address], 02/09/2023 08:39:12 02/10/2002/09/2023 urina lysis , dipst ick Appearance Clear Not Available [address], [address], 02/09/2023 08:39:12 02/10/2002/09/2023 urina lysis , dipst ick Color Yellow Not Available [address], [address], 02/09/2023 08:39:12 Result Notes None recorded. Problems Name Problem SNOMED Code Status Onset Date Resolution Date Notes Provider Name and Address Organization Details Recorded Time Overweight 673468045 Active 2021 Not Available [facility] 3 01:24:23 Hyperlipidemi a 63921851 Active 2021 Not Available [facility] 3 01:24:23 Hyperglycemia 14349198 Active 2021 Not Available [facility] 3 01:24:24 Dysuria 98622010 Active 2022 Bekah Curry NP [address] [facility], [place] [address], [place], [address] , [facility] [employer] [facility] [employer] [facility] 3 08:39:09 Vaginal discharge 462777150 Active 2022 Bekah Curry NP [address] [facility], [place] [address], [place], [address] , [employer] [facility] 3 08:47:54 Acute urinary tract infection 332375126 Active 2022 Bekah Curry NP [address] [facility], [place] [address], [place], [address] , [employer] [facility] [employer] [facility] 3 14:00:22 Urine culture - E. coli 838554061 Active 2022 Bekah Curry NP [address] [facility], [place] [address], [place], [address] , [employer] [facility] 3 20:40:37 Problem Notes None recorded. Procedures Surgical History Date Name Laterality Status Provider Name and Address Organization Details Recorded Time 2 Date of Last Pap Smear completed Bekah Tovar RN [facility] [employer] [facility] 02/09/2023 08:22:11 Removal of ovarian cyst(s) completed Not Available [facility] 01/13/2023 01:23:31 Imaging Results None recorded. Procedure Notes None recorded. Medical Equipment None Reported. Allergies No known drug allergies Medications Name Sig Start Date Stop Date Status Note LastModified by Organization Details LastModified Time binaxnow cov kit home cierra 02/09 completed Not Available Not Available Not Available cyclobenzap rine 10 mg tablet TAKE 1 TABLET BY MOUTH AT BEDTIME NEEDED FOR MUSCLE SPASM. DO NOT DRIVE WHILE TAKING 07/06 completed Not Available Not Available Not Available fluconazole 150 mg tablet TAKE 1 TABLET BY MOUTH NOW. REPEAT IN 7 DAYS active Not Available Not Available No t Available prednisone 20 mg tablet TAKE 2 TABLETS BY MOUTH DAILY FOR 5 DAYS active Not Available Not Available No t Available phentermine 15 mg capsule TAKE 1 CAPSULE BY MOUTH EVERY DAY 02/09 completed Not Available Not Available Not Available topiramate 25 mg tablet TAKE 1 TABLET BY MOUTH EVERY DAY 02/09 completed Not Available Not Available Not Available metronidazo le 500 mg tablet TAKE 1 TABLET BY MOUTH EVERY 12 HOURS FOR 7 DAYS active Not Available Not Available No t Available sulfamethox azole 800 mg-trimetho prim 160 mg tablet Take 1 tablet every 12 hours by oral route for 5 days. active Not Available Not Available No t Available nystatin-tr iamcinolone 100,000 unit/gram-0 .1 % topical ointment APPLY TOPICALLY TO THE AFFECTED AREA TWICE DAILY FOR 5 TO 7 DAYS active Not Available Not Available No t Available cephalexin 500 mg capsule TAKE 1 CAPSULE BY MOUTH EVERY 8 HOURS FOR 10 DAYS active Not Available Not Available No t Available ergocalcife rol (vitamin D2) 1,250 mcg (50,000 unit) capsule TAKE 1 CAPSULE BY MOUTH 1 TIME WEEKLY FOR 8 WEEKS active Not Available Not Available No t Available norethindro ne (contracept denise) 0.35 mg tablet 02/09 completed Not Available Not Available Not Available topiramate 50 mg tablet TAKE 1 TABLET BY MOUTH TWICE DAILY 02/09 completed Not Available Not Available Not Available nitrofurant oin monohydrate /macrocryst als 100 mg capsule TAKE 1 CAPSULE BY MOUTH EVERY 12 HOURS FOR 7 DAYS active Not Available Not Available No t Available LishaW COVID-19 Ag Self Test kit TEST DIRECTED TODAY 07/06 completed Not Available Not Available Not Available Mounjaro 7.5 mg/0.5 mL subcutaneou s pen injector ADMINISTE R 7.5MG UNDER THE SKIN EVERY WEEK active Not Available Not Available No t Available Mounjaro 5 mg/0.5 mL subcutaneou s pen injector ADMINISTE R 0.5 ML UNDER THE SKIN EVERY WEEK active Not Available Not Available No t Available Mounjaro 2.5 mg/0.5 mL subcutaneou s pen injector INJECT 2.5 MG EVERY WEEK BY SUBCUTANE OUS ROUTE 02/09 completed Not Available Not Available Not Available Vitals Date Recorded Body height Body mass index (BMI) Body weight Body temperature Heart rate Respiratory rate Oxygen saturation Oxygen saturation in Arterial blood by Pulse oximetry Systolic blood pressure Diastolic blood pressure Provider Name and Address Organization Details Last Updated DateTime 3 161.29 cm 25 kg/m2 22523.1 6 g 97.5 [degF] 72 /min 16 /min 98 % 98 % 118 mm[Hg] 70 mm[Hg] Bekah Tovar RN [facility] [employer] [facility] 3 08:26:08 Date Recorded Body mass index (BMI) Body height Oxygen saturation Oxygen saturation in Arterial blood by Pulse oximetry Heart rate Respiratory rate Body temperature Body weight Systolic blood pressure Diastolic blood pressure Provider Name and Address Organization Details Last Updated DateTime 2 28.1 kg/m2 161.29 cm 99 % 99 % 72 /min 16 /min 97.9 [degF] 53505.3 7 g 118 mm[Hg] 74 mm[Hg] Not Available [employer] 3 01:23:45 Social History Question Answer Notes LastModified by Organizat ion Details LastModified Time Tobacco Smoking Status Former Smoker Bekah Tovar RN [facility] [employer] [facility] 02/09/2023 08:27:34 Do You Have An Advance Directive? No Information not available 02/09/2023 Is Blood Transfusion Acceptable In An Emergency? Yes Information not available 02/09/2023 What Is Your Level Of Caffeine Consumption? Heavy Information not available 02/09/2023 What Is Your Code Status? Full Code Information not available 02/09/2023 In The 14 Days Before Symptom Onset, Have You Had Close Contact With A Laboratory-confi rmed COVID-19 While That Case Was Ill? No Information not available 02/09/2023 In The 14 Days Before Symptom Onset, Have You Had Close Contact With A Person Who Is Under Investigation For COVID-19 While That Person Was Ill? No Information not available 02/09/2023 What Type Of Diet Are You Following? REGULAR Information not available 02/09/2023 How Many Days Of Moderate To Strenuous Exercise, Like A Brisk Walk, Did You Do In The Last 7 Days? 5 Information not available 02/09/2023 On Those Days That You Engage In Moderate To Strenuous Exercise, How Many Minutes, On Average, Do You Exercise? 30 Information not available 02/09/2023 Have There Been Any Changes To Your Family Or Social Situation? No Information not available 02/09/2023 When Did You Quit Smoking? 11-15yearssincelast cigarette Information not available 02/09/2023 Do You Use Insect Repellent Routinely? Yes Information not available 02/09/2023 Where Do You Live? SingleLevelHouse Information not available 02/09/2023 Do You Have A Medical Power Of Laundry Aid? No Information not available 02/09/2023 How Many Children Do You Have? 3 Information not available 02/09/2023 Do You Have Any Pets? Yes Information not available 02/09/2023 Do You Use Protection During Sex? No Information not available 02/09/2023 What Is Your Relationship Status? Information not available 02/09/2023 Do You Use Your Seat Belt Or Car Seat Routinely? Yes Information not available 02/09/2023 Are You Sexually Active? Yes Information not available 02/09/2023 Do You Have Smoke And Carbon Monoxide Detectors In Your Home? Yes Information not available 02/09/2023 At What Age Did You Start Smoking Tobacco? 15 Information not available 02/09/2023 Are You Passively Exposed To Smoke? No Information not available 02/09/2023 Are There Any Smokers In Your House? No Information not available 02/09/2023 How Much Tobacco Do You Smoke? No Information not available 02/09/2023 Do You Participate In Social Media? Yes Information not available 02/09/2023 Do You Use Sunscreen Routinely? Yes Information not available 02/09/2023 Have You Recently Traveled Abroad? No Information not available 02/09/2023 Sex: Unknown Functional Status Question Answer Note LastModified by Organizat ion Details LastModified Time Do you use any illicit or recreational drugs? No Information not available 02/09/2023 What is your level of alcohol consumption? Occasional [id number] Information not available 01/13/2023 Are you currently employed? Yes Information not available 02/09/2023 What is your exercise level? Moderate Information not available 02/09/2023 Mental Status Question Answer Note LastModified by Organization D etails LastModified Time Do you feel stressed (tense, restless, nervous, or anxious, or unable to sleep at night)? [id number] Information not available 02/09/2023 Family History Relationship Description Onset Age of this Age Resolved Age Notes LastModified by Organization Details LastModified Time Unspecified Relation Family history of malignant neoplasm Not available 02/09 08:05:13 Unspecified Relation Diabetes mellitus [id number] Not available 01/13/2023 01:23:32 Medical History No medical history recorded. Gynecological History Statement/Question Response Date of Last Pap Smear 08/28/2022 Current Control Method None Age at Menarche 10 Flow Moderate Date of LMP 01/26/2023 Obstetrics History GPAL:G 3 P 3 0 0 3 Type Value Full Term 3 Living 3 Total 3 Past Encounters Encounter ID Performer Location Encounter Start Date Encounter Closed Date Diagnosis/Indication Diagnosis SNOMED-CT Code Diagnosis ICD10 Code Diagnosis Note [id number] Bekah Curry NP [address] [address] 07/06/2022 00:00:00 07/06/2022 09:39:26 [id number] Bekah Curry NP [address] [address] 02/09/2023 08:03:52 02/09/2023 08:53:13 Dysuria 71065337 R30.0 Urine dip completed. Urine culture sent. Vaginal discharge 544102 006 N89.8 Stay hydrated with water, avoid soaking in bath water or hot tub. Health Concerns Section Related Observation LastModified by Organization Detai ls LastModified Time None Recorded Concern Status LastModified by Organization Details LastModified Time None Recorded Advance Directives Directive N: Payers Encounter Date Sequence Insurance Name Policy Number Policy Dave Covered Member ID Dave Member ID Guarantor Name 02/09/2023 1 [employer] (PPO) [id number] Lilian Aldana [id number] Lilian Aldana Notes Date Note Type Note Provider Name and Address Organization Details Recorded Time 02/09/2023 text/html Here for UTI symptoms. Symptoms started 3 days ago. [place] burning with urination. Burning after urination. Some itching. Was having some leftNo redness and swelling.Had this last month and did boric acid suppository and was better. But now returned symptoms. No fever or chills, nausea+odor to vaginal area, discharge at times. Bekah Curry NP [address] [facility] [address], [place], [address], [place] [facility] 02/09/2023 08:52:13 OBGyn Episode No OBEpisode recorded.
--- OUTSIDE RECORDS SUMMARY | 2025-04-20 16:24 | XMS_ITS | Data Portability ---
Author Organization [facility] Address [address] [place] [address] Assessment Encounter Date Assessment Date Assessment LastModified by Organization Details LastModified Time 01/26/2024 01/26/2024 Annual gynecological exam performed. Patient will come back in a year unless there are new symptoms. [email or web address] Not available 01/26/2024 09:53:52 01/28/2025 01/28/2025 Annual gynecological exam performed. Patient will come back in a year unless there are new symptoms. [email or web address] Not available 01/28/2025 09:54:57 Plan of Treatment Reminders Order Date Submit Date Provider Last Modified By Organization Details Last Modified Time Details Appointments None recorded. Lab lipid panel, blood 2024 025 [facility] (Lab), [address] [place], [address], 5 04:02:15 CMP, serum or plasma 2024 025 [facility] (Lab), [address] [place], [address], 5 04:02:15 CBC w/ auto diff 2024 025 [facility] (Lab), [address] [place], [address], 5 04:02:16 HbA1c (hemoglobin A1c), blood 2024 025 [facility] (Lab), [address] [place], [address], 5 04:02:16 TSH, serum or plasma 2024 025 [facility] (Lab), [address], [place], [address], 5 04:02:16 25-hydroxyv itamin D2 + 25-hydroxyv itamin D3, QN, serum or plasma 2024 025 [facility] (Lab), [address], [place], [address], 5 04:02:16 CMP, serum or plasma 2023 024 [facility] (Lab), [address], [place], [address], 4 03:32:47 HbA1c (hemoglobin A1c), blood 2023 024 [facility] (Lab), [address], [place], [address], 4 03:32:48 CBC w/ auto diff 2023 024 [facility] (Lab), [address], [place], [address], 4 03:32:46 lipid panel, blood 2023 024 [facility] (Lab), [address], [place], [address], 4 03:32:47 TSH, serum or plasma 2023 024 [facility] (Lab), [address], [place], [address], 4 03:32:48 vitamin D, 25-hydroxy, total, serum 2023 024 [facility] (Lab), [address], [place], [address], 4 03:32:48 Referral None recorded. Procedures None recorded. Surgeries None recorded. Imaging MAMMO, screening, digital, bilateral 2024 025 [email or web address] [facility], [address], [place], [address], 15:31:31 Medication Orders Mounjaro 7.5 mg/0.5 mL subcutaneou s pen injector 2024 025 [email or web address] 1 [facility] 2425, [address], [place], [address], 5 14:28:05 Mounjaro 5 mg/0.5 mL subcutaneou s pen injector 2023 024 [facility] 2425, [address], [place], [address], 5 11:45:43 Mounjaro 5 mg/0.5 mL subcutaneou s pen injector 2022 023 [facility] 2425, [address], [place], [address], 5 11:45:43 Mounjaro 5 mg/0.5 mL subcutaneou s pen injector 2022 023 [id number], [address], [place], [place], [id number], 11:45:43 Patient TargetsNo targets recorded. Patient InstructionsNo instructions recorded. Reason for Referral None Reported. Results Created Date Observation Date Name Description Value Unit Range Abnormal Flag Note LastModifiedBy Organization Detail LastModifiedTime 01/26/2001/26/2024 IMAGE GUIDE D PAP AND HPV REGAR DLESS image guided Pap, HPV regardless of Pap result SEE RESULT S BELOW CASE REPOR T: Cytol ogy Gynec ologi gia Repor t Case: [id number] Autho ange javier Provi ramila: Daphne Witt, ADRIANA Ramos cted: 01/25 0938 Order ing Locat ion: [place] Path[facility] logwilner Recei jay jay: 01/26 0554 First Scree [...] is recom faye d, as clini ronnie hernandez nted. Not Available [facility] (Lab) [address], [place], [address], 01/31/2024 16:00:46 02/03/20 24 02/03/2024 CBC W/DIF F WBC 4.7 10'3/ uL 3.5-10 .5 Not Available [facility] (Lab) [address], [place], [address], 02/04/2024 03:32:46 02/03/20 24 02/03/2024 CBC W/DIF F RBC 4.03 10'6/ uL (based on docume nted legal sex) 3.80-5 .20 Not Available [facility] (Lab) [address], [place], [address], 02/04/2024 03:32:46 02/03/20 24 02/03/2024 CBC W/DIF F HGB 12.8 g/dL (based on docume nted legal sex) 11.6-1 5.4 Not Available [facility] (Lab) [address], [place], [address], 02/04/2024 03:32:46 02/03/20 24 02/03/2024 CBC W/DIF F HCT 38.3 % (based on docume nted legal sex) 34.0-4 5.0 Not Available [facility] (Lab) [address], [place], [address], 02/04/2024 03:32:46 02/03/20 24 02/03/2024 CBC W/DIF F MCV 95.0 fL 80.0-9 9.0 Not Available [facility] (Lab) [address], [place], [address], 02/04/2024 03:32:46 02/03/20 24 02/03/2024 CBC W/DIF F MCH 31.8 pg 27.0-3 4.0 Not Available [facility] (Lab) [address], [place], [address], 02/04/2024 03:32:46 02/03/20 24 02/03/2024 CBC W/DIF F MCHC 33.4 g/dL 32.0-3 5.5 Not Available [facility] (Lab) [address], [place], [address], 02/04/2024 03:32:46 02/03/20 24 02/03/2024 CBC W/DIF F RDW 12.7 % 11.0-1 5.0 Not Available [facility] (Lab) [address], [place], [address], 02/04/2024 03:32:46 02/03/20 24 02/03/2024 CBC W/DIF F plt 410 10'3/ uL 150-40 0 high Not Available [facility] (Lab) [address], [place], [address], 02/04/2024 03:32:46 02/03/20 24 02/03/2024 CBC W/DIF F MPV 10.1 fL 8.8-12 .1 Not Available [facility] (Lab) [address], [place], [address], 02/04/2024 03:32:46 02/03/20 24 02/03/2024 CBC W/DIF F NRBC's 0.0 % 0.0 Not Available [facility] (Lab) [address], [place], [address], 02/04/2024 03:32:46 02/03/20 24 02/03/2024 CBC W/DIF F absolute NRBCs 0.0 10'3/ uL 0.0 Not Available [facility] (Lab) [address], [place], [address], 02/04/2024 03:32:46 02/03/20 24 02/03/2024 CBC W/DIF F neutrophils 64.9 % 34.0-7 3.0 Not Available [facility] (Lab) [address], [place], [address], 02/04/2024 03:32:46 02/03/20 24 02/03/2024 CBC W/DIF F lymphocytes 27.5 % 15.0-5 0.0 Not Available [facility] (Lab) [address], [place], [address], 02/04/2024 03:32:46 02/03/20 24 02/03/2024 CBC W/DIF F monocytes 5.9 % 1.0-15 .0 Not Available [facility] (Lab) [address], [place], [address], 02/04/2024 03:32:46 02/03/20 24 02/03/2024 CBC W/DIF F eosinophils 1.1 % 0.0-8. 0 Not Available [facility] (Lab) [address] [place], [address], 02/04/2024 03:32:46 02/03/20 24 02/03/2024 CBC W/DIF F basophils 0.4 % 0.0-2. 0 Not Available [facility] (Lab) [address] [place], [address], 02/04/2024 03:32:46 02/03/20 24 02/03/2024 CBC W/DIF F immature granulocytes 0.2 % no define d refere nce range Not Available [facility] (Lab) [address], [place], [address], 02/04/2024 03:32:46 02/03/20 24 02/03/2024 CBC W/DIF F absolute neutrophils 3.1 10'3/ uL 1.5-8. 0 Not Available [facility] (Lab) [address], [place], [address], 02/04/2024 03:32:46 02/03/20 24 02/03/2024 CBC W/DIF F absolute lymphocytes 1.3 10'3/ uL 1.0-4. 0 Not Available [facility] (Lab) [address], [place], [address], 02/04/2024 03:32:46 02/03/20 24 02/03/2024 CBC W/DIF F absolute monocytes 0.3 10'3/ uL 0.2-1. 0 Not Available [facility] (Lab) [address], [place], [address], 02/04/2024 03:32:46 02/03/20 24 02/03/2024 CBC W/DIF F absolute eosinophils 0.1 10'3/ uL 0.0-0. 6 Not Available [facility] (Lab) [address], [place], [address], 02/04/2024 03:32:46 02/03/20 24 02/03/2024 CBC W/DIF F absolute basophils 0.0 10'3/ uL 0.0-0. 3 Not Available [facility] (Lab) [address], [place], [address], 02/04/2024 03:32:46 02/03/20 24 02/03/2024 CBC W/DIF [...] resul ts are expec vincenzo. Not Available [facility] (Lab) [address], [place], [address], 02/04/2024 03:32:46 02/03/20 24 02/03/2024 LIPID PANEL ,AMA (LDL- CALC) total cholesterol 220 mg/dL 0-199 high Not Available [facility] (Lab) [address] [place], [address], 02/04/2024 03:32:47 02/03/20 24 02/03/2024 LIPID PANEL ,AMA (LDL- CALC) triglyceride s 145 mg/dL 0.00-1 50.00 NCEP Refer ence Value s for Trigl yceri jeffrey: Angela l: <150 mg/dL Borde rline High: 150 - 199 mg/dL High: 200 - 499 mg/dL Very High: >/= 500 mg/dL Not Available [facility] (Lab) [address] [place], [address], 02/04/2024 03:32:47 02/03/20 24 02/03/2024 LIPID PANEL ,AMA (LDL- CALC) HDL cholesterol 67 mg/dL >40 Not Available [facility] (Lab) [address] [place], [address], 02/04/2024 03:32:47 02/03/20 24 02/03/2024 LIPID PANEL ,AMA (LDL- CALC) LDL cholesterol 127 mg/dL 0-99 high Cutof f value s recom faye d by the Natio nal Reena stero l Educa tion Progr am: JORGE ABLE: Reena stero l <200 mg/dL LDL <100 mg/dL BORDE RLINE : Reena stero l 200-2 39 mg/dL LDL 101-1 59 mg/dL HIGHE R RISK: Reena stero l >240 mg/dL LDL >160 mg/dL , HDL <40 mg/dL Not Available [facility] (Lab) [address], [place], [address], 02/04/2024 03:32:47 02/03/20 24 02/03/2024 LIPID PANEL ,AMA (LDL- CALC) non-HDL cholesterol 153 mg/dL no refere nce range A reaso nable goal for non-H DL reena stero l is one that is 30 mg/dL highe r than the LDL renea stero l goal. Not Available [facility] (Lab) [address], [place], [address], 02/04/2024 03:32:47 02/03/20 24 02/03/2024 LIPID PANEL ,AMA (LDL- CALC) chol/HDL ratio 3.3 . 0.0-5. 0 On March 08, 2023, [facility] labor atori es francisco ed the equat ion for calcu latin g estim ated low-d ensit y lipop rotei n-cho leste rol (LDL- C) from the Fried marv equat ion to the Abby maria e/Jemima rebolledo equat ion. This new equat ion [...] mg/dL ), trigl yceri jeffrey are eleva vinecnzo, or patie nt is non-f astin g. Refer ences : - Gilles Johnson, Lewis Brown , Lazaro yarbrough, Naresh Abraham, Naresh villarreal, [facility] , and Bridger Lara . 2013. Comp ariso n of a Novel Metho d vs the Fried marv Equat ion for Estim ating Low-D ensit y Lipop rotei n Reena stero l Level s from the Stand catherine Lipid Profgraham le. IRINA: The Journ al of the Ameri can Medic al Assoc iatio n 310 (19): 2060- . - Patrick wharton V, Barbara J, Deandre wharton A, Chiara M, Tomasa buckner R, Robinson wharton E, Adán mroris RS, Marco SR, Abby n SS. Fast ing Versu s Nonfa sting and Low-D ensit y Lipop rotei n Reena stero l Accur acy. Circu latio n. 2017Nov 15;137 (1):1 0-19. Not Available [facility] (Lab) [address], [place], [address], 02/04/2024 03:32:47 02/03/20 24 02/03/2024 CMP(C OMPRE HENSI VE METAB OLIC PANEL ) sodium 138 mmol/ L 133-14 6 Not Available [facility] (Lab) [address] [place], [address], 02/04/2024 03:32:47 02/03/20 24 02/03/2024 CMP(C OMPRE HENSI VE METAB OLIC PANEL ) potassium 4.3 mmol/ L 3.5-5. 1 Not Available [facility] (Lab) [address] [place], [address], 02/04/2024 03:32:47 02/03/20 24 02/03/2024 CMP(C OMPRE HENSI VE METAB OLIC PANEL ) chloride 102 mmol/ L 98-107 Not Available [facility] (Lab) [address] [place], [address], 02/04/2024 03:32:47 02/03/20 24 02/03/2024 CMP(C OMPRE HENSI VE METAB OLIC PANEL ) carbon dioxide 29 mmol/ L 21-31 Not Available [facility] (Lab) [address] [place], [address], 02/04/2024 03:32:47 02/03/20 24 02/03/2024 CMP(C OMPRE HENSI VE METAB OLIC PANEL ) anion gap 7 mmol/ L 4-13 Not Available [facility] (Lab) [address], [place], [address], 02/04/2024 03:32:47 02/03/20 24 02/03/2024 CMP(C OMPRE HENSI VE METAB OLIC PANEL ) blood urea nitrogen 12 mg/dL 7-[address] [facility] (Lab) [address], [place], [address], 02/04/2024 03:32:47 02/03/20 24 02/03/2024 CMP(C OMPRE HENSI VE METAB OLIC PANEL ) creatinine 0.83 mg/dL 0.60-1 .30 Not Available [facility] (Lab) [address], [place], [address], 02/04/2024 03:32:47 02/03/20 24 02/03/2024 CMP(C OMPRE HENSI VE METAB OLIC PANEL ) egfrcr (CKD-epi 2020) 86 mL/mi n/1.7 3_m2 >=60 Not Available [facility] (Lab) [address], [place], [address], 02/04/2024 03:32:47 02/03/20 24 02/03/2024 CMP(C OMPRE HENSI VE METAB OLIC PANEL ) calcium 9.3 mg/dL 8.3-10 .5 Not Available [facility] (Lab) [address], [place], [address], 02/04/2024 03:32:47 02/03/20 24 02/03/2024 CMP(C OMPRE HENSI VE METAB OLIC PANEL ) glucose 81 mg/dL 70-100 Not Available [facility] (Lab) [address], [place], [address], 02/04/2024 03:32:47 02/03/20 24 02/03/2024 CMP(C OMPRE HENSI VE METAB OLIC PANEL ) protein, total 7.0 g/dL 6.4-8. 3 Not Available [facility] (Lab) [address], [place], [address], 02/04/2024 03:32:47 02/03/20 24 02/03/2024 CMP(C OMPRE HENSI VE METAB OLIC PANEL ) albumin 4.7 g/dL 3.5-5. 0 Not Available [facility] (Lab) [address], [place], [address], 02/04/2024 03:32:47 02/03/20 24 02/03/2024 CMP(C OMPRE HENSI VE METAB OLIC PANEL ) ALT 20 units /L 9-43 Not Available [facility] (Lab) [address], [place], [address], 02/04/2024 03:32:47 02/03/20 24 02/03/2024 CMP(C OMPRE HENSI VE METAB OLIC PANEL ) alkaline phosphatase 86 units /L 34-104 Not Available [facility] (Lab) [address], [place], [address], 02/04/2024 03:32:47 02/03/20 24 02/03/2024 CMP(C OMPRE HENSI VE METAB OLIC PANEL ) AST 14 units /L 13-39 Not Available [facility] (Lab) [address], [place], [address], 02/04/2024 03:32:47 02/03/20 24 02/03/2024 CMP(C OMPRE HENSI VE METAB OLIC PANEL ) bilirubin, total 0.4 mg/dL 0.2-1. 2 Not Available [facility] (Lab) [address] [place], [address], 02/04/2024 03:32:47 02/03/20 24 02/03/2024 TSH, REFLE X FREE T4 TSH 1.09 uIU/m L 0.30-5 .33 Not Available [facility] (Lab) [address], [place], [address], 02/04/2024 03:32:48 02/03/20 24 02/03/2024 HEMOG LOBIN A1C hemoglobin A1C 5.5 % 0-5.6 The Ameri can Diabe cierra Assoc iatio n recom mends that a prima ry goal of thera py barryul d be a HBA1C of < 7% and that physi cians shoul d reeva luate the treat ment regim en in patie nts with HBA1C value s consi stent ly > 8%. <5.7% Angela l 5.7 - 6.4% Incre ased risk for diabe cierra >=6.5 % Diagn ostic of diabe cierra <7.0% Goal of thera py >8.0% Actio n sugge sted Not Available [facility] (Lab) [address], [place], [address], 02/04/2024 03:32:48 02/03/20 24 02/03/2024 VITAM IN D, 25-OH (TOTA L D2/D3 ) vitamin D, 25-hydroxy, total 16.9 NG/mL 30.0-1 00.0 low Sugge stive of Defic iency : <20 ng/mL Sugge stive of Insuf ficie ncy: 20-29 ng/mL Sugge stive of Suffi cienc y: 30-10 0 ng/mL Sugge stive of Toxic ity: >150 ng/mL Not Available [facility] (Lab) [address], [place], [address], 02/04/2024 03:32:48 Result Notes None recorded. Procedures Surgical History Date Name Laterality Status Provider Name and Address Organization Details Recorded Time 01/26/20 24 Date of Last Pap Smear completed Edith Degroot [facility] 01/28/2025 09:57:31 Laparoscopy completed Tiny West [facility] 06/07/2022 17:02:24 Imaging Results None recorded. Procedure Notes None recorded. Medical Equipment None Reported. Allergies No known drug allergies Medications Name Sig Start Date Stop Date Status Note LastModified by Organization Details LastModified Time eranw cov kit home cierra 06/07 completed Not Available Not Available Not Available cyclobenzap rine 10 mg tablet TAKE 1 TABLET BY MOUTH AT BEDTIME NEEDED FOR MUSCLE SPASM. DO NOT DRIVE WHILE TAKING 06/07 completed Not Available Not Available Not Available tretinoin 0.1 % topical cream APPLY SMALL AMOUNT TOPICALLY TO FACE EVERY NIGHT AT BEDTIME active Not Available Not Available No t Available ofloxacin 0.3 % eye drops ADMINISTE R 1 DROP INTO THE LEFT EYE EVERY 4 HOURS WHILE AWAKE X 7 DAYS 01/28 completed Not Available Not Available Not Available [...] MOUTH EVERY 12 HOURS FOR 7 DAYS 01/28 completed Not Available Not Available Not Available [...] CAPSULE BY MOUTH EVERY 12 HOURS FOR 5 DAYS 01/28 completed Not Available Not Available Not Available ergocalcife rol (vitamin D2) 1,250 mcg (50,000 unit) capsule Take one capsule by mouth once weekly for 8 weeks 04/14 completed Not Available Not Available Not Available norethindro ne (contracept denise) 0.35 mg tablet 01/14 completed Not Available Not Available Not Available azelaic acid 15 % topical gel APPLY SMALL AMOUNT TOPICALLY TO FACE EVERY MORNING active Not Available Not Available No t Available topiramate 50 mg tablet TAKE 1 TABLET BY MOUTH TWICE DAILY 09/03 completed Not Available Not Available Not Available nitrofurant oin monohydrate /macrocryst als 100 mg capsule TAKE 1 CAPSULE BY MOUTH EVERY 12 HOURS FOR 5 DAYS 01/28 completed Not Available Not Available Not Available cholecalcif nela (vitamin D3) 1,250 mcg (50,000 unit) capsule TAKE 1 CAPSULE BY MOUTH ONCE A WEEK 01/28 completed Not Available Not Available Not Available BinaxNOW COVID-19 Ag Self Test kit TEST DIRECTED TODAY 06/07 completed Not Available Not Available Not Available Mounjaro 7.5 mg/0.5 mL subcutaneou s pen injector INJECT 7.5MG SUBCUTANE OUSLY EVERY WEEK active Not Available Not Available No t Available Mounjaro 5 mg/0.5 mL subcutaneou s pen injector INJECT 0.5 ML SUBCUTANE OUSLY ONCE EVERY 7 DAYS 01/28 completed Not Available Not Available Not Available Mounjaro 2.5 mg/0.5 mL subcutaneou s pen injector 01/25 completed Not Available Not Available Not Available Zepbound 5 mg/0.5 mL subcutaneou s pen injector Inject 5 mg every week by subcutane ous route. 01/28 completed Not Available Not Available Not Available Vitals Date Recorded Body height Body mass index (BMI) Body weight Systolic blood pressure Diastolic blood pressure Provider Name and Address Organization Details Last Updated DateTime 01/26/2024 162.56 cm 24 kg/m2 38461.93 g 124 mm[Hg] 81 mm[Hg] Rena Soto [facility] 4 09:55:51 Date Recorded Body height Body mass index (BMI) Body weight Systolic blood pressure Diastolic blood pressure Provider Name and Address Organization Details Last Updated DateTime 01/28/2025 162.56 cm 24.6 kg/m2 61873.43 g 153 mm[Hg] 92 mm[Hg] Edithbeau Ledesmaney [facility] 5 09:56:12 Date Recorded Body height Body mass index (BMI) Body weight Systolic blood pressure Diastolic blood pressure Provider Name and Address Organization Details Last Updated DateTime 03/18/2023 162.56 cm 24.3 kg/m2 16866.96 g 119 mm[Hg] 91 mm[Hg] Tinybertha Lacymarco [facility] 3 10:25:24 Date Recorded Body height Body mass index (BMI) Body weight Systolic blood pressure Diastolic blood pressure Systolic blood pressure Diastolic blood pressure Provider Name and Address Organization Details Last Updated DateTime 3 162.56 cm 24.4 kg/m2 34078.1 2 g 168 mm[Hg] 121 mm[Hg] 140 mm[Hg] 84 mm[Hg] Jennifer Clarktz [facility] 3 16:55:05 Date Recorded Body height Body mass index (BMI) Body weight Systolic blood pressure Diastolic blood pressure Provider Name and Address Organization Details Last Updated DateTime 06/24/2023 162.56 cm 23.8 kg/m2 00743.9 g 126 mm[Hg] 94 mm[Hg] [facility] 10:53:25 Social History Question Answer Notes LastModified by Organizat ion Details LastModified Time Tobacco Smoking Status Never Smoker [facility] 06/24/2023 10:43:10 Do You Have An Advance Directive? No Information n ot available 06/07/2022 Are You Blind Or Do [...] Known To Be High Risk For COVID-19? No [email or web address] Information not available 01/28/2025 Are You Deaf Or Do You Have Serious Difficulty Hearing? No Information not available 06/07/2022 What Type Of Diet Are You Following? REGULAR Information n ot available 06/07/2022 What Is The Highest Grade Or Level Of School You Have Completed Or The Highest Degree You Have Received? [id number] Information not available 06/07/2022 Are There Any [...] IV Drugs? No Information not available 06/07/2022 Do You Have Difficulty Walking Or Climbing Stairs? No Information not available 06/24/2023 Sex: Unknown Functional Status Question Answer Note LastModified by Organizat ion Details LastModified Time Do you use any illicit or recreational drugs? No Information not available 06/07/2022 What is your level of alcohol consumption? None Information not available 06/07/2022 Are you able to walk? YESLIMIT Information not available 06/07/2022 Are you able to care for yourself? 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 No Information not available 06/24/2023 What is your exercise level? Occasional Information not available 06/07/2022 Mental Status Question Answer Note LastModified by Organization D etails LastModified Time Do you feel stressed (tense, restless, nervous, or anxious, or unable to sleep at night)? [id number] Information not available 06/07/2022 Family History Relationship Description Onset Age of this Age Resolved Age Notes LastModified by Organization Details LastModified Time Father Diabetes mellitus vschroedter Not available 01/2023 09:49:18 Father Malignant neoplasm of lung vschroedter Not available 01/2023 09:49:18 Paternal Grandmother Diabetes mellitus vschroedter Not available 01/2023 09:49:18 Paternal Grandmother Diabetes mellitus vschroedter Not available 01/2023 09:49:18 Paternal Grandmother Diabetes mellitus vschroedter Not available 01/2023 09:49:18 Medical History Condition Response Acid Reflux (GERD) Y Gynecological History Statement/Question Response Abnormal Pap N Date of Last Mammogram Date of LMP 12/31/2023 On BCP's at Conception? N Was last menstrual period normal Y STIs/STDs N HPV Vaccine N Duration of Flow (days) 5 Current Control Method Partner Vas ectomy Age at First Child 16 Are cycles usually normal Y Date of Last Colonoscopy Frequency of Cycle (Q days) 27 Sexually Active? Y Menses Monthly Y Age of first menstrual cycle 10 Date of Last Pap Smear 01/26/2024 Sexual Problems? Y LMP Approximate Obstetrics History GPAL:G 5 P 2 1 2 3 Type Value Full Term 2 Spontaneous 2 Premature 1 Living 3 Total 5 Past Encounters Encounter ID Performer Location Encounter Start Date Encounter Closed Date Diagnosis/Indication Diagnosis SNOMED-CT Code Diagnosis ICD10 Code Diagnosis Note [id number] LORI Joyner [place] [address] [address] 06/07/2022 16:50:04 06/07/2022 17:44:34 Screening for malignant neoplasm of breast 303352091 Z12.39 Non-menopa usal hot flash 8450957504 86662 R23.2 Gynecologi c examination 67179390 Z01.419 Suggested Calcium with Vitamin D 1200-1500m g daily. Patient advised to get an annual flu shot in the fall and she could obtain at [facility] or [facility]. Also to obtain TDap vaccinatio [...] to establish care with a PCP, encouraged thisColono scopy, discussedG enetic testing, discussedR TC in 1 year for WWE or sooner if needed BP today 142/80. No symptoms. Encouraged to establish care with PCP, to go to the ED with any SOB, chest pains, headaches/ blurry vision. 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 Recently lost her father.Fee ling sad at times since losing her fatherFind s it hard to eat healthy, does not have much time to exerciseMe als are irregular given police shift commander scheduleMe dical hx : Elevated cholestero l [...] of plan of care. Gynecologi c examination [id number] Z01.419 [id number] LORI Joyner [place] [address] [address] 07/16/2022 10:19:37 07/16/2022 12:56:55 Obesity 021098226 E66.9 She has had a normal EKGLabs showed elevated cholestero l and LDL - we discussed this. Weight loss, exercise, healthy eating to help with this.Maulik navarro D low - started supplement ationShe saw the drop wire aligner, doing well incorporat ing changes into diet!Start [...] counseling and review of plan of care. [id number] LORI Joyner [place] [address] [address] 08/06/2022 09:28:46 08/06/2022 09:55:31 Obesity 470300114 E66.9 47yo Presents for follow-up on weight management . She has lost 3lbs since AR. She has been making healthier food choices. Exercising more, going on walks and strength training. 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 She is seeing the drop wire aligner. No negative SE since starting the medication [...] counseling and review of plan of care. [id number] LORI Joyner [place] [address],[place] [address] 09/03/2022 09:55:09 09/03/2022 14:32:23 Obesity [id number] E66.9 We discussed all options moving forward [...] human reverence unknown.Wayne napoles agrees to these [facility] ed that we are using this medicaton off label for weight lossRemarietta [facility] ed [facility]ra tion. She will do one injection weekly for 4 weeks, RTC in 1 month for f/uContinu e with exerciseCo ntinue with drop wire aligner Time spent in visit is a total of 25 mins with at least 50% of visit consisting of counseling and review of plan of care. [id number] LORI Joyner [place] [address] [address] 10/05/2022 10:43:14 10/05/2022 12:25:00 Obesity 381507281 E66.9 We agreed to continue with auroraunuri, will increase dose to 5mg SQ per [...] and review of plan of care. Prediabetes 343410755 R7 3.03 Hyperlipidemia 83112273 E78.5 Elevated blood-pressure reading without diagnosis of hypertension 048322799 R03.0 [id number] Daphne Witt [facility] [address],[place] [address] 11/19/2022 09:41:19 11/19/2022 10:47:04 Obesity 213454837 E66.9 We agreed to continue with nellie deckers to stay at same doseR/B of medication [...] and review of plan of care. Prediabetes 139605929 R7 3.03 Hyperlipidemia 14582393 E78.5 [id number] Daphne Witt ADRIANA [place] [address],[place] [address] 12/17/2022 09:38:37 12/17/2022 11:28:27 Obesity 026882489 E66.9 We agreed to continue with nellie [...] and review of plan of care. Prediabetes 559648223 R7 3.03 Hyperlipidemia 49056751 E78.5 [id number] [facility] [address],[place] [address] 01/14/2023 10:02:23 01/14/2023 11:16:40 Obesity 274417874 E66.9 We agreed to continue with brianne, desires to increase dose to 7.5mg SQ [...] counseling and review of plan of care. [id number] [facility] [address],[place] [address] 02/10/2023 09:29:27 02/10/2023 10:25:25 Vaginitis 81897505 N76.0 suspect yeast infectionv aginitis panel sentSTI endocervic al testing sentvulvar care guidelines discussed, d/c use of scented soapsRx sent, R/B/A discussedR TC if symptoms persist past treatment Time spent in visit is a total of 20 mins with at least 50% of visit consisting of counseling and review of plan of care. Vulval irritation 348473 003 N90.89 Venereal d isease screening 294265219 Z11.3 [id number] [facility] [address],[place] [address] 02/11/2023 09:50:09 02/11/2023 12:02:13 Obesity 571804192 E66.9 She is almost down to a [...] counseling and review of plan of care. [id number] LORI Joyner [place] [address],[place] [address] 03/18/2023 10:21:40 03/18/2023 10:59:10 Obesity 244821210 E66.9 She is almost down to a [...] counseling and review of plan of care. [id number] LORI Joyner [place] [address],[place] [address] 04/14/2023 16:36:00 04/15/2023 10:17:44 Obesity 800140318 E66.9 we discussed lifestyle modificati ons to help her maintain her weight loss. Discussed exercise, healthy eating, protein intake. Recommende d she consult with the drop wire aligner again.She is going to make these changes, we discussed weaning off the medication . We have a plan.She will RTC in 4 weeksR/B discussed of medication Time spent in visit is a total of 20 minwith at least 50% of visit consisting of counseling and review of plan of care. [id number] LORI Joyner [place] [address],[place] [address] 06/24/2023 10:42:27 06/24/2023 11:16:50 Obesity 162414717 E66.9 she is doing well, maintainin g weight loss - weaning down on mounjaro doseshe is exercising , making healthy diet choicesref ills sent, R/B/A discussedR TC in 3 months or sooner if needed Time spent in visit is a total of 15 mins with at least 50% of visit consisting of counseling and review of plan of care. [id number] LORI Joyner [place] [address] [address] 01/26/2024 09:48:37 01/26/2024 10:23:38 Gynecologic examination 39268679 Z01.419 WWEpap updateddec lined STI screenmamm ogram order givenColon CA screening discussed - would like cologuard kitfasting labs orderedenc ouraged annual exam with PCPRTC in 1 yr or sooner if needed Suggested Calcium with Vitamin D daily. Patient advised to get an annual flu shot in the fall and she could obtain at [facility] or [facility] clinic. Also to obtain TDap vaccinatio n [...] email. Screening for malignant neoplasm of breast 382370908 Z12.39 Adult [facility] th examination 354534306 Z00.00 Weight gain 4726141 R63. 5 refills of mounjaro sentdiscus sed r/b/aconti nue regular exercise, healthy diet [id number] LORI Joyner [place] [address] [address] 01/28/2025 09:37:12 01/28/2025 11:48:18 Gynecologic examination 23670146 Z01.419 WWEdiscuss ed perimenopa use todayPap - UTD/ not indicated todaySTI screen - declinedMa mmogram - order givenColon cancer screening - UTD/cologu cahterine done exa - n/aRoutine labs - orderedBP precaution s discussed, encouraged PCP f/uRTC in 1 yr or sooner if needed Do monthly self breast exams.It is advised to get annual flu shot in the fall and she could obtain at local pharmacy. If you haven't received the Tdap vaccine in the last 10 years you should obtain one as well.Have mammogram yearly, bone density every 2-3 years and stay up to date on colon cancer screening. Engage in regular exercise. Avoid tobacco and illicit drugs. This lifestyle behavior pattern will lead to less health conditions and longer life span. If BMI greater than 25 dietary consult advised.Qu estions have been answered. Screening for malignant neoplasm of breast 944915708 Z12.39 Adult heal th examination 273248475 Z00.00 Obesity 321308442 E66.9 opts to continuere fills sent, r/b/a reviewedco ntinue exercise/h ealthy lifestyle encouraged Time spent in visit is a total of 25 mins with at least 50% of visit consisting of counseling and review of plan of care. Health Concerns Section Related Observation LastModified by Organization Detai ls LastModified Time None Recorded Concern Status LastModified by Organization Details LastModified Time None Recorded Advance Directives Directive N: Payers Encounter Date Sequence Insurance Name Policy Number Policy Dave Covered Member ID Dave Member ID Guarantor Name 03/18/2023 1 [employer] [id number] Lilian Aldana [id number] Lilian Aldana 04/14/2023 1 [employer] [id number] Lilian Aldana [id number] Lilian Aldana 06/24/2023 1 [employer] [id number] Lilian Aldana [id number] Lilian Aldana 01/26/2024 1 [employer] [id number] Lilian Aldana [id number] Lilian Aldana 01/28/2025 1 [employer] [id number] Lilian Aldana [id number] Lilian Aldana Notes Date Note Type Note Provider Name and Address Organization Details Recorded Time 3 text/html 48yopresents for weight management f/ushe is doing well, continues to loose weightmaking lifestyle changesno negative SE LORI Joyner [address], [place], [address], [facility] 03/18/2023 10:57:54 3 text/html 48yopresents for weight management f/reji continues [...] weight loss. LORI Joyner [address], [place], [address], [facility] 04/15/2023 09:29:48 3 text/html 48yopresents for weight management f/reji continues to maintain her weight loss while weaning down on her mounjaro doseshe is feeling wellcontinues to have normal bowel movementsno negative SEexercisingjust started new job LORI Joyner [address], [place], [address], [facility] 06/24/2023 11:10:16 4 text/html Annual GYNReported bypatient.Menstrual cycle:Normal menses Urinary symptoms:No hematuria; No incontinence Vulva:No genital lesion Vagina:Normal vaginal discharge Breast:No breast pain; No breast lump; No nipple discharge Current Contraception:Satisfie d with current contraception; Partner had vasectomy Sexual [...] dose. 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 01/26/2024 10:23:21 5 text/html Annual GYNReported bypatient.Menstrual cycle:Perimenopausal Urinary symptoms:No hematuria; No incontinence Vulva:No genital lesion Vagina:Normal vaginal discharge Breast:No breast pain; No breast lump; No nipple discharge Current Contraception:Satisfie d with current contraception; Partner had vasectomy Sexual complaints:No sexual complaints; No pain during intercourse;Decreased libido Menopausal Symptoms:No menopausal symptoms; Normal vaginal lubrication Psychological symptoms:No depression; No anxiety; No PMDD Preventive measures:Encourage self breast examination; Encourage regular exercise; Encourage no tobacco use; Encourage regular mammograms starting age 39Notes:49yo wweBC - partner with vasectomylast pap 01/2024 : nilm, HPV (-)no h/o abnormal paps decreased libidohas skipped a few periods over the last yearno current hot flashes or night sweats on mounjaro for weight managementstable on 7.5mg dose and would like to continuecontinues to exercise/healthy diet LORI Joyner [address], [place], [address], [facility] 01/28/2025 11:47:27 OBGyn Episode No OBEpisode recorded.
[2025-04-20 16:28] VITALS: BP 120/76; PULSE 78; RESP 16; TEMP 36.4; O2SAT 100
[2025-04-20 16:36] LABS: EDUAAPPEAR Cloudy; EDUABILI Negative (Negative); EDUABLOOD Trace (Negative); EDUACOLOR1 Yellow; EDUAGLUCOSE Negative (Negative); EDUAKETONE Negative (Negative); EDUALEUKO 2+ (Negative); EDUANITRATE Negative (Negative); EDUAPH 7.5; EDUAPROTEIN Trace (Negative); EDUASPGRAVITY 1.025; EDUAUROBILI 0.2
== END 2025-04-20 16:42 | disposition home or self-care (01) ==
PROVIDERS: Emergency Provider Nurse Practitioner Family
DX: N30.01 Acute cystitis with hematuria (principal); Z87.891 Personal history of nicotine dependence
CPT/HCPCS: 81003; 87086; 87186; 99213; G0463